=== PATIENT | female | born 1940 | race Caucasian/White ===

== ENCOUNTER 2018-04-25 19:20 | Inpatient (IN) | payer MEDICARE, MEDICAID ==
[~2018-04-25] VITALS: Wt 108.9 kg
--- NOTE | ~2018-04-25 | PR ---
[place], [place] PROGRESS NOTE NAME: BOBO WONG UNIT #: [id number] ROOM: 310 DOCTOR: NOAH VILLA CNP BIRTHDATE: [birth year] DOS: 04/27/2018 CHIEF COMPLAINT: "I won't be here for a lunch." SUMMARY OF THE VISIT: The patient was interviewed in the dining room. She reports that she ate all of her breakfast. However, her sister will be coming to get her because her doctor told her she could go home. The staff reports that the patient has episodes of redundancy in her speech and screaming and crying out. When asked why she does so, she says "I cannot help it." The patient did report that she slept well last night. Staff reports that yesterday she did have some suicidal ideation, but no plan. It appears that by symptomology the patient has pseudobulbar affect. We will plan to start Nuedexta in order to help with these symptoms. MENTAL STATUS EXAMINATION: She is alert and oriented to person and place, not time. She is pleasant and cooperative with me. No matt or hypomania. No delusions or paranoia. No audio or visual hallucinations noted. Her speech was clear, normal tone and rate. Eye contact was good. DIAGNOSES: Pseudobulbar affect. PLAN: We will start Nuedexta 20/10 mg daily for 7 days, then plan to increase to q. 12 hours. We will continue to engage the patient in individual and gilliam milieu activity. Continue fall and safety precautions. Plan to return the patient to the least restrictive environment when she is considered psychiatrically stable. Noah Villa CNP CM:PNTRANS [phone] ONAH VILLA CNP 04/28/18 0358 interface
--- NOTE | ~2018-04-25 | PR ---
[place], [place] PROGRESS NOTE NAME: BOBO WONG UNIT #: [id number] ROOM: 310 DOCTOR: NOAH VILLA CNP BIRTHDATE: [birth year] DOS: 05/05/2018 CHIEF COMPLAINT: "I am excited to see my son." SUMMARY OF THE VISIT: The patient was interviewed as she sat in her room. She reports that she is happy and that she is sleeping well. She reports that her appetite has been good. She denies feeling anxious. Staff reports that the patient only slept 2 hours last night and yelled out most of the night awakening other peers. She continues to exhibit behaviors and continues to be attention seeking at times. MENTAL STATUS: She is alert and oriented to person, place; however, not time. No matt or hypomania noted. No delusions or paranoia noted. No auditory or visual hallucinations noted. Her mood is calm. Affect is appropriate. Her speech is clear. PLAN: We will start Ativan 0.5 mg at bedtime for increased agitation. We will monitor if this is effective to decrease symptoms and improve sleep. Continue to engage the patient in individual and gilliam milieu activity. Continue fall and safety precautions. Plan to return to the least restrictive environment once psychiatrically stable. Noah Villa CNP CM:PNTRANS [phone] NOAH VILLA CNP 05/05/18 1125 interface
--- NOTE | ~2018-04-25 | PR ---
[place], [place] PROGRESS NOTE NAME: BOBO WONG UNIT #: [id number] ROOM: 310 DOCTOR: ERIC CASTREJON MD BIRTHDATE: [birth year] DOS: 04/29/2018 CHIEF COMPLAINT: "I don't know what is happening here, I didn't sleep well." SUMMARY OF THE VISIT: The patient was interviewed in the dining area where she was sitting with peers. She engaged readily in nonsensical conversation, jumping from topic to topic. She did at least correctly state that she lives at [facility], but states that she does not want to return there, stating that she does not like it there and wants to find another placement. MENTAL STATUS: She is alert and oriented to person, possibly place, not to time. Mood does seem to be labile. Affect inappropriate. She does tend to be fragmented in her thinking and has a hard time forming a complete sentence. Short term memory continues to be problematic. PLAN: I will go ahead and increase her Risperdal to 0.5 mg twice daily and check a valproic acid level later today at 1600 hours to ensure that it is therapeutic. We will continue to engage in individual and gilliam milieu activities, returning then to the least restrictive environment when psychiatrically stable. ERIC CASTREJON MD CM:PNTRANS [id number] ERIC CASTREJON MD 04/29/18 1001 interface
--- NOTE | ~2018-04-25 | DS ---
[place], [place] DISCHARGE SUMMARY [id number] #: [id number] ROOM: 310 DOCTOR: ERIC CASTREJON MD BIRTHDATE: [birth year] DOS: 05/07/2018 CHIEF COMPLAINT: "If my family does not come and get me today, I will kill myself." HISTORY OF PRESENT ILLNESS: This is a 77-year-old white female known to me from her stay at [facility] in [place], [place]. The patient had been screaming nonstop for days and had been verbally and physically aggressive towards staff and other residents. The patient had not been sleeping at all during the night. Family believes that she cycles like this every 5 years. The patient has been so inappropriately. She has been sexually flashing others and has been very difficult to quiet and calm down. She was admitted now to the U to rule out any organic factors to attempt to stabilize on medication and to determine the least restrictive environment to which she could be returned to. SUMMARY OF HOSPITAL COURSE: The patient was admitted to the unit where she was maintained on her Depakote, her Exelon and her Namenda. The patient had been prescribed Latuda while at the long term, but this seemed to be ineffective, so the Latuda was discontinued in lieu of Risperdal 0.5 mg in the morning and 1 mg at night. This was utilized in an effort to decrease some of her mood lability. It became quite obvious that she was having excessive emotionality that was inappropriate to the content that was occurring given the fact that this was so prominent, it was felt that pseudobulbar affect was definitely a diagnostic possibility and she was started on Nuedexta 20-10 once a day, which was rapidly increased to 1 tablet every 12 hours. This had a dramatic improvement on her behavior and much of her yelling dissipated after the start of the Nuedexta. She continued to exhibit some mood lability; however, and did have some sleep issues, so the Risperdal dose was gradually increased during the latter part of her stay to a maximum of 1.5 mg in the morning and 2 mg at night. With this dose of Risperdal, the patient was much more redirectable. She was not experiencing the significant mood swings or the inappropriate behavior. She was not exhibiting any side effects from the Risperdal. There was no sedation, somnolence, extrapyramidal symptoms or tardive dyskinesia. The patient voiced a willingness and a readiness to return back to [facility] and was discharged then on 05/07/2018. MENTAL STATUS AT DISCHARGE: The patient is alert and oriented to person, place, and approximate to time. Mood was strongly trending towards euthymia. There was much less mood lability and mood lability that persisted was redirectable. There were no overt auditory or visual hallucinations. No delusions, no paranoia. Short-term memory had gaps, otherwise she was relatively fully intact. DISCHARGE DIAGNOSES: Schizoaffective disorder and pseudobulbar affect along with Alzheimer's dementia. DISPOSITION: All of her prescriptions except her Ativan prescription was e-scribed to [facility]. A 1-week supply of Ativan was printed and sent with her. I will be the treating psychiatrist of record upon her readmission to [facility]. At the time of her discharge, there were no acute medical issue [place], [place] DISCHARGE SUMMARY NAME: BOBO WONG UNIT #: [id number] ROOM: 310 DOCTOR: ERIC CASTREJON MD BIRTHDATE: [birth year] and she was psychiatrically stable. ERIC CASTREJON MD CM:SUMI [phone] ERIC CASTREJON MD 05/07/18 0907 interface
--- NOTE | ~2018-04-25 | PR ---
[place], [place] PROGRESS NOTE NAME: BOBO WONG UNIT #: [id number] ROOM: 310 DOCTOR: ERIC CASTREJON MD BIRTHDATE: [birth year] DOS: 05/02/2018 INTERVAL NOTE CHIEF COMPLAINT: "Oh, I'm okay, but [facility] SUMMARY OF THE VISIT: The patient was interviewed as she was sitting finishing her breakfast in the dining area. She engaged readily in conversation. Later as I left and was in the nurse's station, she loudly yelled out to me, but did redirect. Nurses report that she did not sleep well last night and was up throughout most of the night, yelling at times. She does redirect more readily than she did upon admission. She also was outwardly tolerating the medication regimen well with no sedation, somnolence, extrapyramidal symptoms or tardive dyskinesia. MENTAL STATUS: She is alert and oriented with time gaps. Mood does seem to be more euthymic. Affect more appropriate. There is no matt, hypomania or psychosis. Memory does have gaps. PLAN: I will renew her Ativan p.r.n., should she require intervention and add Rozerem 8 mg at bedtime straight to improve her sleep. Engage in individual and gilliam milieu activity, returning to the least restrictive environment when psychiatrically stable. ERIC CASTREJON MD CM:PNTRANS [phone] ERIC CASTREJON MD 05/03/18 0641 interface
--- NOTE | ~2018-04-25 | PR ---
[place], [place] PROGRESS NOTE NAME: BOBO WONG UNIT #: [id number] ROOM: 310 DOCTOR: ERIC CASTREJON MD BIRTHDATE: [birth year] DOS: 04/30/2018 INTERVAL NOTE CHIEF COMPLAINT: "Hey, doctor, doctor doctor come here." SUMMARY OF THE VISIT: The patient was interviewed as she was sitting in the quiet room. She was sitting with one of the staff members. As I approached, she repeatedly called out doctordoctor doctor. After I left, she continued to yell out, but did respond to some firm redirection. Nurses report she did not sleep well last night again and continues at times to exhibit auditory and visual hallucinations. MENTAL STATUS: She remains alert and oriented to self, unclear place, certainly not time. Mood does still seem to be labile. Affect at times is inappropriate. There is a great deal of mood lability and yelling out noted. Short-term memory continues to be problematic. PLAN: I will increase the Risperdal to 1 mg twice daily if she is not exhibiting any sedation, somnolence, extrapyramidal symptoms or tardive dyskinesia. I will simultaneously bring the Nuedexta into its therapeutic range, increasing it to twice daily, monitor and support, engage in individual and gilliam milieu activity, returning then to the least restrictive environment when psychiatrically stable. ERIC CASTREJON MD CM:PNTRANS [id number] ERIC CASTREJON MD 04/30/18 1309 interface
--- NOTE | ~2018-04-25 | PR ---
[place], [place] PROGRESS NOTE NAME: BOBO WONG UNIT #: [id number] ROOM: 310 DOCTOR: ERIC CASTREJON MD BIRTHDATE: [birth year] DOS: 05/03/2018 CHIEF COMPLAINT: "Morning doctor." SUMMARY OF THE VISIT: The patient was interviewed as she was wheeling herself in her wheelchair in the hallway. She stopped and engaged in conversation with me. She was bright and pleasant. Once I was done talking with her, however, approximately 30 minutes later, I did hear her howling and coughing and hitting her chest. She continues to be very behavioral and attention seeking, but does redirect much more easily. She is also sleeping better at night, eating well, and is exhibiting no side effects from the medications themselves. MENTAL STATUS: She is alert and oriented to person, place, very approximate to time. Mood does seem to be strongly trending towards euthymia. Affect is much more appropriate. There is no matt or hypomania. There is no gross psychosis. Short term memory has gaps, otherwise she is intact. PLAN: I will recheck a valproic acid level today at 1500 hours, ensuring that it is therapeutic between 60 and 80, adjust the dose accordingly, maintain her other psychotropics, engage in individual and gilliam milieu activity, returning then to the least restrictive environment when psychiatrically stable. ERIC CASTREJON MD CM:PNTRANS [id number] ERIC CASTREJON MD 05/03/18 5348 interface
--- NOTE | ~2018-04-25 | PR ---
[place], [place] PROGRESS NOTE NAME[id number] UNIT #: [id number] ROOM: 310 DOCTOR: NOAH VILLA CNP BIRTHDATE: [birth year] DOS: 04/28/2018 CHIEF COMPLAINT: "Can my daughter come visit me here." SUMMARY OF THE VISIT: She was interviewed as she sat in the quiet room. She reports that she wants to visit with her daughter; however, she does not want to be in the dining room, she feels it is too noisy and that there is a poisonous gas leak that needs to be fixed. Staff reports that the patient did start the Nuedexta and seems to be tolerating it well; however, she was having visual hallucination last night of seeing ducks and then was cracking. She has also been having episodes where she is barking. The patient appears to be being treated for UTI at this time. I will plan to start her on some Risperdal to see if it helps with the hallucination symptoms. MENTAL STATUS EXAMINATION: She is alert and oriented to person, place; however, she is not to time. No matt or hypomania noted. Positive delusions of poisonous gas in the dining area. Some mild paranoia noted. No auditory or visual hallucinations noted at this time. Her mood appears to be slightly anxious. Affect is congruent with mood. Her eye contact was good. Her speech was clear, normal tone and normal rate. PLAN: I will start the patient on Risperdal 0.25 mg b.i.d. to aid in the resolution of the hallucinations, delusions and paranoia. This may be related to a UTI, so we may be able to taper this in the near future once the UTI is resolved. We will continue to engage the patient in individual and gilliam milieu activity. Continue fall and safety precautions. Plan to return the patient to the least restrictive environment once psychiatrically stable. Noah Villa CNP CM:PNTRANS [phone] NOAH VILLA CNP 05/29/18 0837 interface
--- NOTE | ~2018-04-25 | PR ---
[place], [place] PROGRESS NOTE NAME: BOBO WONG UNIT #: [id number] ROOM: 310 DOCTOR: ERIC CASTREJON MD BIRTHDATE: [birth year] DOS: 05/01/2018 INTERVAL NOTE CHIEF COMPLAINT: "I want to go back to the locked Alzheimer's unit at [facility]." SUMMARY OF THE VISIT: The patient was interviewed as she was resting quietly in the dining area. She awoke easily upon calling her name and engaged in brief superficial conversation. She did not act bizarrely in any way; however, after we left the room and returned back to the nursing station the patient began howling like a douglas until I came into view of her and she immediately stopped upon seeing me. Some of them her symptoms are volitional. Nurses report, however, since the Nuedexta was started and subsequently increased to its therapeutic level her nonsensical yelling seems to have decreased. MENTAL STATUS: She is alert and oriented with time gaps. Mood does still seem to be labile. There is still these outbursts how much are volitional versus psychosis is unclear. Memory does continue to have gaps. PLAN: I will go ahead and continue to gradually increase her Risperdal bringing the dose from 1 mg twice daily to 1 mg in the morning and 2 mg at bedtime. We will monitor for risk, benefits, monitor for sedation, somnolence, extrapyramidal symptoms and tardive dyskinesia. We will discharge the patient when psychiatrically stable. ERIC CASTREJON MD CM:PNTRANS [phone] ERIC CASTREJON MD 05/01/18 1024 interface
--- NOTE | ~2018-04-25 | PR ---
[place], [place] PROGRESS NOTE NAME: BOBO WONG UNIT #: [id number] ROOM: 310 DOCTOR: NOAH VILLA CNP BIRTHDATE: [birth year] DOS: 05/04/2018 CHIEF COMPLAINT: "I am doing well." SUMMARY OF VISIT: The patient was interviewed in the quiet room after breakfast. She provided very short tense answers. She reports that she is happy, she is sleeping well and her appetite is good. Staff reports that the patient's mood continues to be labile at times. She continues to exhibit some behaviors and appears to be attention seeking at times. MENTAL STATUS EXAMINATION: She is alert and oriented to self. No overt matt or hypomania noted. No delusions or paranoia noted. No auditory or visual hallucinations noted. Her mood is calm. Affect is congruent with mood. Her speech was clear. PLAN: Increase the patient's morning Risperdal to 1.5 mg due to her continued mood lability and agitation. We will continue to engage the patient in individual and gilliam milieu activity. We will continue fall and safety precautions. Plan is to return the patient to the least restrictive environment when she is considered psychiatrically stable. Noah Villa CNP CM:PNTRANS [phone] NOAH VILLA CNP 05/05/18 0819 interface
--- NOTE | ~2018-04-25 | PR ---
[place], [place] PROGRESS NOTE NAME: [id number] UNIT #: [id number] ROOM: 310 DOCTOR: ERIC CASTREJON MD BIRTHDATE: [birth year] DOS: 05/06/2018 CHIEF COMPLAINT: "She is from my place. I have seen her there before." SUMMARY OF THE VISIT: The patient was interviewed in the dining area where she was sitting with a female peer who also resides at her long-term care facility. The patient was bright and pleasant and voiced no complaints, reporting to me that she had a good weekend. She did report that she is sleeping well and eating well and overall she was much more appropriate in conversation. There was no bizarre behavior, no bizarre utterances, no howling or inappropriate behavior. Outwardly also, she did not exhibit any sedation, somnolence, extrapyramidal symptoms or tardive dyskinesia. MENTAL STATUS: She remains alert and oriented to person, place, not necessarily time. Mood does seem to be strongly trending towards euthymia. Affect is much more appropriate. There is no matt or hypomania. There are no gross psychotic symptoms. For the most part, memory is intact. PLAN: I will maintain her current psychotropic regimen. Continue to support and monitor. Continue to engage in individual and gilliam milieu activity, returning to the least restrictive environment when psychiatrically stable. ERIC CASTREJON MD CM:PNTRANS [phone] ERIC CASTREJON MD 05/06/18 1118 interface
[~2018-04-25 19:20] MED LIST: ACIDOPHILUS1 EAC5 PO; ARTIFICIAL TEA3.5 G1 OP; ASPIRIN ADULT L81 MG PO
[2018-04-25 20:30] VITALS: BP 154/86
[2018-04-25] MEDS ORDERED: Depakote500 MG PO (22:10)
[2018-04-25] MEDS ORDERED: DOCUSOFT-S100 MG PO (22:12)
[2018-04-25] MEDS ORDERED: FEROSUL325 MG PO (22:14)
[2018-04-25] MEDS ORDERED: ROBITUSSIN5 ML PO (22:15)
[2018-04-25] MEDS ORDERED: LASIX20 MG PO (22:16)
[2018-04-25] MEDS ORDERED: CLARITIN10 MG PO (22:17)
[2018-04-25] MEDS ORDERED: LATU80TA PO (22:17)
[2018-04-25] MEDS ORDERED: NAMENDA-28 PO (22:18)
[2018-04-25] MEDS ORDERED: PRAVACHOL80 M1 PO (22:19)
[2018-04-25] MEDS ORDERED: RIVASTIGMINE TAR6 M1 PO (22:20)
[2018-04-25] MEDS ORDERED: Kenalog 0.5% Oi15 GM T (22:22)
[2018-04-25] MEDS ORDERED: TYLENOL325 M1 PO (22:23)
[2018-04-25] MEDS ORDERED: VISTARIL50 MG PO (22:24)
[2018-04-25] MEDS ORDERED: VITAMIN B-121000 MC2 PO (22:26)
[2018-04-25] MEDS ORDERED: VITAMIN D-32000 UNI1 PO (22:27)
[2018-04-25] MEDS ORDERED: OXYGEN NAS (22:34)
[2018-04-26 07:24] VITALS: BP 126/70
[2018-04-26 08:39] VITALS: BP 126/70
[2018-04-26 09:13] LABS: THYROID STIM HORMONE (HS) 3.86 uIU/ml (0.358-4.75)
[2018-04-26 09:26] LABS: VITAMIN D, 25-HYDROXY 21.1 ng/mL (30-100)
[2018-04-26 16:29] LABS: BILIRUBIN NEGATIVE (NEGATIVE); BLOOD 3+ (NEGATIVE); CLARITY CLOUDY (CLEAR); COLOR YELLOW (YELLOW); GLUCOSE NEGATIVE (NEGATIVE); KETONE NEGATIVE (NEGATIVE); LEUKO ESTERASE 3+ (NEGATIVE); NITRITE NEGATIVE (NEGATIVE); UROBILINOGEN 0.2 E.U./dl (0.2-1.0)
[2018-04-26 16:45] LABS: BACTERIA 4+; RBC TNTC rbc/hpf (0-2); WBC TNTC wbc/hpf (0-5)
[2018-04-26 19:43] VITALS: BP 130/61
[2018-04-27 07:33] VITALS: BP 130/50
[2018-04-27 13:57] VITALS: BP 130/69
[2018-04-27 19:13] VITALS: BP 118/68
[2018-04-28 06:27] LABS: BASO # 0.1 10*3/uL (0.0-0.1); BASO % 0.8 % (0.0-1.0); EOS # 0.2 10*3/uL (0.0-0.4); EOS % 3.2 % (1.0-4.0); HEMATOCRIT 39.4 % (37.0-47.0); HEMOGLOBIN 12.2 g/dl (12.0-16.0); LYMPH # 2.1 10*3/uL (1.3-4.4); LYMPH % 31.8 % (27.0-41.0); MEAN CORPUSCULAR HGB 31.3 pg (27.0-31.0); MEAN PLATELET VOLUME 10.3 fl (9.6-12.3); MONO # 0.8 10*3/uL (0.1-1.0); MONO % 11.7 % (3.0-9.0); NEUT # 3.5 10*3/uL (2.3-7.9); PLATELET COUNT AUTOMATED 272 10*3/uL (130-400); WHITE BLOOD COUNT 6.7 10*3/uL (4.8-10.8)
[2018-04-28 06:58] LABS: BUN 18 mg/dl (7-24); CHLORIDE 104 mmol/L (98-107); CREATININE 0.79 mg/dL (0.55-1.02); POTASSIUM 3.6 mmol/L (3.5-5.1); SODIUM 142 mmol/L (136-145)
[2018-04-28 07:26] VITALS: BP 110/60
[2018-04-28 19:43] VITALS: BP 115/89
[2018-04-29 07:20] VITALS: BP 121/67
[2018-04-29 20:13] VITALS: BP 122/65
[2018-04-30 07:42] VITALS: BP 139/60
[2018-04-30 20:25] VITALS: BP 159/55
[2018-05-01 07:40] VITALS: BP 120/53
[2018-05-01 20:00] VITALS: BP 126/65
[2018-05-02 08:09] VITALS: BP 118/78
[2018-05-02 20:00] VITALS: BP 122/65
[2018-05-03 07:52] VITALS: BP 122/56
[2018-05-03 19:51] VITALS: BP 118/62
[2018-05-04 08:16] VITALS: BP 122/61
[2018-05-04 19:53] VITALS: BP 123/54
[2018-05-05 07:59] VITALS: BP 124/58
[2018-05-05 20:00] VITALS: BP 133/66
[2018-05-06 07:16] VITALS: BP 127/71
[2018-05-06 19:45] VITALS: BP 132/70
[2018-05-07 07:33] VITALS: BP 130/67
[2018-05-07] MEDS ORDERED: MIRTAZAPINE15 M2 PO (08:52)
[2018-05-07] MEDS ORDERED: RISPERIDONE1 MG PO (08:52)
[2018-05-07] MEDS ORDERED: LORAZEPAM0.5 MG PO (08:52)
[2018-05-07] MEDS ORDERED: RISPERIDONE0.5 MG PO (08:52)
[2018-05-07] MEDS ORDERED: RIVASTIGMINE TAR3 M1 PO (08:52)
[2018-05-07] MEDS ORDERED: DIVALPROEX SOD500 M1 PO (08:52)
[2018-05-07] MEDS ORDERED: RISPERIDONE2 M2 PO (08:52)
[2018-05-07] MEDS ORDERED: NEUDEXT PO (08:52)
[2018-05-07] MEDS ORDERED: MEMANTINE HCL10 MG PO (08:52)
== END 2018-05-07 13:54 | DRG 57 ==
LOC: EDHOLD 19:20 → 3N 19:20
PROVIDERS: Internal Medicine; Nurse Practitioner Women's Health; ADMIT Psychiatry & Neurology Psychiatry
DX: G30.9 Alzheimer's disease, unspecified (principal); F31.10 Bipolar disorder, current episode manic without psychotic features, unspecified; F25.9 Schizoaffective disorder, unspecified; I50.9 Heart failure, unspecified; F42.9 Obsessive-compulsive disorder, unspecified; I11.0 Hypertensive heart disease with heart failure; I25.10 Atherosclerotic heart disease of native coronary artery without angina pectoris; M19.90 Unspecified osteoarthritis, unspecified site; E78.5 Hyperlipidemia, unspecified; K21.9 Gastro-esophageal reflux disease without esophagitis; R32 Unspecified urinary incontinence; K59.00 Constipation, unspecified; E53.8 Deficiency of other specified B group vitamins; E55.9 Vitamin D deficiency, unspecified; F02.80 Dementia in other diseases classified elsewhere, unspecified severity, without behavioral disturbance, psychotic disturbance, mood disturbance, and anxiety

== ENCOUNTER 2019-02-27 10:29 | Inpatient (IN) | payer MEDICARE, MEDICAID ==
[~2019-02-27] VITALS: Ht 157.4 cm; Wt 99.8 kg
--- NOTE | ~2019-02-27 | PR ---
[place], [place] PROGRESS NOTE [id number] UN[facility] #: [id number] ROOM: 310 DOCTOR: ERIC CASTREJON MD BIRTHDATE: [birth year] DOS: 03/09/2019 CHIEF COMPLAINT: "Oh, doctor Richy thanks for coming." SUMMARY OF THE VISIT: The patient was interviewed as she was sitting watching television. She stopped and engaged in conversation with me. She reached out and touched my hand and thanked me for visiting. She continues to exhibit significant mood lability and she did jump from topic to topic. Nurses do report she slept better, but then she continues behavior such as flashing male workers and patients. MENTAL STATUS: She remains alert and oriented to person, place, select others, not necessarily time. Mood still is rather labile and affect is inappropriate at times. She is hypomanic now and the full matt seems to be dissipating some. There is no active psychosis noted. Short term memory has gaps. PLAN: I will continue her trazodone at 300 mg at bedtime as this did seem to impact positively on her sleep. I will increase the Invega from 9 mg to 12 mg in the morning in an effort to control mood lability and behavior, continue to engage in individual and gilliam milieu activity, returning to the least restrictive environment when psychiatrically stable. ERIC CASTREJON MD CM:PNTRANS [phone] ERIC CASTREJON MD 03/09/19 1030 interface
--- NOTE | ~2019-02-27 | PR ---
[place], [place] PROGRESS NOTE [id number] UNIT #: [id number] ROOM: 310 DOCTOR: ERIC CASTREJON MD BIRTHDATE: [birth year] DOS: 03/03/2019 CHIEF COMPLAINT: "I didn't have a weekend." SUMMARY OF THE VISIT: The patient was interviewed as she was finishing her breakfast. She engaged readily in conversation, reporting that she did not have a weekend. When I had her elaborate on that, she stated that she did not sleep well and that she yelled a lot. She openly stated that she was manic, but wanted to go back home. I told her that I could not return her home until her matt came under control and then she nodded in approval. MENTAL STATUS: She remains alert and oriented with time gaps. Mood does seem to be still rather labile and inappropriate at times. There are no gross psychotic symptoms noted and memory does have some gaps. PLAN: I will discontinue her hydroxyzine to simplify her drug regimen and increase the Invega from 6 mg in the morning to 9 mg in the morning to try to break some mood lability. I will check a valproic acid level at 1500 hours given the fact that she is on the Depakote ER prep and that the trough level is somewhere between 3 and 4 p.m. We will monitor and support, engage in individual and gilliam milieu activity, returning to the least restrictive environment when psychiatrically stable. ERIC CASTREJON MD CM:PNTRANS [phone] ERIC CASTREJON MD 03/03/19 1739 interface
--- NOTE | ~2019-02-27 | PR ---
[place], [place] PROGRESS NOTE [id number] UNIT #: [id number] ROOM: 310 DOCTOR: ERIC CASTREJON MD BIRTHDATE: [birth year] DOS: 03/05/2019 CHIEF COMPLAINT: "I didn't sleep well. I am bipolar, manic depressive." SUMMARY OF THE VISIT: The patient was interviewed as she was sitting eating her breakfast. She engaged readily in conversation and was somewhat fragmented, disjointed and circumstantial. She remains grossly hypomanic. Outwardly, she is tolerating her current medication regimen well and I see no tardive dyskinesia, extrapyramidal symptoms, sedation or somnolence. MENTAL STATUS: She is alert and oriented. Mood does seem to be rather expansive and labile. There are no overt auditory or visual hallucinations. No delusions, no paranoia. Memory does have some gaps. PLAN: I will change the stop date for her p.r.n. Ativan until 03/29/2019 should she require intervention. Given the ineffectiveness of the Rozerem to aid sleep, I will discontinue it in lieu of Ambien 5 mg at bedtime. Her lack of sleep could certainly be perpetuating her hypomania and matt and hopefully a good night sleep will break the cycle. We will continue to engage her in individual and gilliam milieu activity, returning to the least restrictive environment when psychiatrically stable. ERIC CASTREJON MD CM:PNTRANS [phone] ERIC CASTREJON MD 03/05/19 1455 interface
--- NOTE | ~2019-02-27 | PR ---
[place], [place] PROGRESS NOTE NAME: BOBO WONG UNIT #: [id number] ROOM: 310 DOCTOR: ERIC CASTREJON MD BIRTHDATE: [birth year] DOS: 03/13/2019 CHIEF COMPLAINT: "I will go home tomorrow, tomorrow, tomorrow. Tomorrow never comes." SUMMARY OF THE VISIT: The patient was interviewed as she was sitting in the dining area. She had already eaten her breakfast. She engaged readily in conversation and reported to me that she was ready to go home tomorrow and then reported that tomorrow, tomorrow, tomorrow never comes, stating that she likes it here. She then cackled and laughed hysterically. Overall, though there has been an improvement and she is much more pleasant and cooperative. I do believe she likes being in the hospital and the added attention that she gets here. More often than not, she is now redirectable and she does seem to be tolerating the current medication regimen well without any extrapyramidal symptoms, tardive dyskinesia, sedation or somnolence. MENTAL STATUS: She is alert and oriented with time gaps. Mood does seem to be strongly trending towards euthymia. Affect is much more appropriate. There is no matt, hypomania or psychosis. Short term memory has gaps, otherwise she is intact. PLAN: I will continue her current psychotropic regimen, renew her p.r.n. Ativan should she require intervention. Engage in individual and gilliam milieu activity, returning to the least restrictive environment when psychiatrically stable. ERIC CASTREJON MD CM:PNTRANS [phone] ERIC CASTREJON MD 03/13/19 1044 interface
--- NOTE | ~2019-02-27 | PR ---
[place], [place] PROGRESS NOTE NAME: BOBO WONG UNIT #: [id number] ROOM: 310 DOCTOR: ERIC CASTREJON MD BIRTHDATE: [birth year] DOS: 03/07/2019 INTERVAL NOTE CHIEF COMPLAINT: "I didn't sleep." SUMMARY OF THE VISIT: The patient was interviewed as she was sitting with a group of peers. She engaged at first in some meaningful conversation, but very quickly deteriorated into almost nonsense. At one point, she began cackling like a witch, loudly laughing almost hysterical. Eventually, I asked that she be removed to quiet room as she was very disruptive to the entire milieu. MENTAL STATUS: She is alert and oriented to person, place and approximate to time. Mood still is wildly labile. Affect is inappropriate. She remains grossly manic. PLAN: I will discontinue her Ambien due to ineffectiveness and begin titrating trazodone. I will start at 100 mg at bedtime in an effort to get her sleeping hoping to break the cycle and break the matt. We will engage in individual and gilliam milieu activity, returning to the least restrictive environment when psychiatrically stable. ERIC CASTREJON MD CM:PNTRANS 1 ERIC CASTREJON MD 03/07/19910 interface
--- NOTE | ~2019-02-27 | DS ---
[place], [place] DISCHARGE SUMMARY [facility] [id number] UNIT #: [id number] ROOM: 310 DOCTOR: ERIC CASTREJON MD BIRTHDATE: [birth year] DOS: 03/14/2019 DATE OF DISCHARGE: 03/14/2019 CHIEF COMPLAINT: "I am manic depressive bipolar." HISTORY OF PRESENT ILLNESS: This is an 78-year-old white female known to me from her previous admission here to the [facility] as well as her stay at [facility] in [place], [place]. The patient has become increasingly more manic and psychotic. She has been experiencing both auditory and visual hallucinations. She has been very labile and irritable. She has been disruptive to the entire gilliam milieu there and has been verbally and physically aggressive towards staff. She has been sexually inappropriate and she has been flashing her breasts to staff, other residents and visitors. She is admitted now to rule out organic factors, to stabilize on medication, to return then to the least restrictive environment when psychiatrically stable. SUMMARY OF HOSPITAL COURSE: The patient was admitted to the hospital where her Risperdal was discontinued in lieu of Invega 6 mg a day with the hope that this would be more potent with less sedation. Additionally, her Remeron initially was lowered from 22.5 mg a day to 15 mg a day in order to attempt to improve sleep and break the manic psychosis. Rozerem was added at first to see if this would help; however, this was unsuccessful and the Remeron decrease did not work as well. Ultimately, she was started on trazodone 50 mg at bedtime and gradually the dose was increased to 300 mg at bedtime with good results finally at that dose. The Invega dose was gradually increased from 6 to 9 and then ultimately to 12 mg a day and at that dose, coupled with the trazodone, that did seem to break the manic behavior. She was much less disruptive. She was not yelling out as much and she was not as sexually inappropriate and when she attempted to be sexually inappropriate, simple verbal prompting would stop her. She tolerated the Invega and the trazodone well. There was no excessive sedation, somnolence, extrapyramidal symptoms or tardive dyskinesia. She had improved sufficiently to return back to [facility] at that time. MENTAL STATUS AT DISCHARGE: The patient is alert and oriented to person, place, but not time. Mood does seem to be strongly trending towards euthymia. Affect is much more appropriate. There is no matt, hypomania or psychosis. Short term memory has gaps, otherwise she is intact. FINAL DIAGNOSIS AT THE TIME OF DISCHARGE: Bipolar type 1, manic, with psychotic features. PLAN: The patient is returning to [facility]. Her prescriptions have been e-scribed to [facility]. At the time of discharge, she was medically and psychiatrically stable. [place], [place] DISCHARGE SUMMARY NAME: BOBO WONG UNIT #: [id number] ROOM: 310 DOCTOR: ERIC CASTREJON MD BIRTHDATE: [birth year] ERIC CASTREJON MD CM:SUMI ERIC CASTREJON MD 03/14/1960 interface
--- NOTE | ~2019-02-27 | PR ---
[place], [place] PROGRESS NOTE NAME[id number] UNIT #: [id number] ROOM: 310 DOCTOR: ERIC CASTREJON MD BIRTHDATE: [birth year] DOS: 03/04/2019 CHIEF COMPLAINT: "I am bipolar, manic depressive. "When do I get to go home." SUMMARY OF THE VISIT: The patient was interviewed in the dining area. As I approached her, she engaged in conversation readily. She was nearly pressured, but she was interruptible. She jumped from topic to topic and at one point, she attempted to pull her blouse up exposing herself, but she did redirect relatively easily. Outwardly, she is not showing any signs of sedation, somnolence, extrapyramidal symptoms or tardive dyskinesia. MENTAL STATUS: She is alert and oriented with some time gaps. Mood does seem to be wildly manic. There were no gross psychotic symptoms. She does process at times slowly and short term memory is poor. PLAN: I will discontinue her Remeron in case this antidepressant is fueling the matt. I will also simplify her regimen by discontinuing the Nuedexta and add Rozerem 8 mg at bedtime in an effort to improve sleep and see if that will also help break the manic cycle. Her valproic acid level was therapeutic at 71.4, so I will maintain her current Depakote dose. We will continue to engage in individual and gilliam milieu activity, returning then to the least restrictive environment when psychiatrically stable. ERIC CASTREJON MD CM:PNTRANS [phone] ERIC CASTREJON MD 03/04/19 1300 interface
--- NOTE | ~2019-02-27 | PR ---
[place], [place] PROGRESS NOTE NAME: [facility]ONG [facility]: [id number] UNIT #: [id number] ROOM: 310 DOCTOR: ERIC CASTREJON MD BIRTHDATE: [birth year] DOS: 03/11/2019 CHIEF COMPLAINT: "Oh, hold my hand." SUMMARY OF THE VISIT: The patient was interviewed as she was resting in bed. I entered her room with a nurse present. The patient did awake easily. She asked me immediately to hold her hand. I did offer her assistance in the form of getting a nurse's aide to help her get up, get ready and have breakfast. She nodded in approval. She did seem somewhat somnolent in waking up this morning, but on a positive note nurses did report that she slept much better last evening. MENTAL STATUS: She is alert and oriented to person, place, but not time. Mood does seem to be trending towards euthymia. Affect is more appropriate. There is no matt or hypomania. There is no gross psychosis. Short-term memory does have gaps. PLAN: I will maintain her current psychotropic regimen, continue to engage in individual and gilliam milieu activity, returning to the least restrictive environment when psychiatrically stable. ERIC CASTREJON MD CM:PNTRANS [phone] ERIC CASTREJON MD 03/11/19 1046 interface
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
--- NOTE | ~2019-02-27 | PR ---
[place], [place] PROGRESS NOTE NAME: BOBO WONG UNIT #: [id number] ROOM: 310 DOCTOR: ERIC CASTREJON MD BIRTHDATE: [birth year] DOS: 03/10/2019 CHIEF COMPLAINT: "Morning." SUMMARY OF THE VISIT: The patient was interviewed as she was resting in bed. She awoke and engaged in brief conversation, continuing still to be fragmented and disjointed. Nurses report, she continues to have some periods of inappropriate behavior, but redirects with verbal prompting. Otherwise, there have been no behavioral issues. MENTAL STATUS: She is alert and oriented to person, place, not necessarily time. Mood does seem to be trending towards euthymia. Affect is more appropriate. There is no matt, hypomania or gross psychosis. Short-term memory does have gaps. PLAN: I will continue her current psychotropic regimen, continue to engage in individual and gilliam milieu activity, returning then to the least restrictive environment when psychiatrically stable. ERIC CASTREJON MD CM:PNTRANS 7 6 ERIC CASTREJON MD [birth year]/10[birth year]1925 interface
--- NOTE | ~2019-02-27 | PR ---
[place], [place] PROGRESS NOTE [id number] UNIT #: [id number] ROOM: 310 DOCTOR: ERIC CASTREJON MD BIRTHDATE: [birth year] DOS: 03/12/2019 CHIEF COMPLAINT: "Oh, I don't want to go back to [facility], no way, no how." SUMMARY OF THE VISIT: The patient was interviewed in the dining room. She reported to me that she was feeling better. When I discussed with her that she would be going back to [facility], she yelled loudly that she did not want to go back. Otherwise, she was pleasant and cooperative. Sleep has improved, appetite has improved and overall she is much more redirectable. MENTAL STATUS: She is alert and oriented with time gaps. Mood does seem to be trending towards euthymia. Affect is more appropriate. There is no matt, hypomania or psychosis. Short term memory continues to be problematic. PLAN: I will continue her current psychotropic regimen, continue to engage in individual and gilliam milieu activity, returning to the least restrictive environment when psychiatrically stable. ERIC CASTREJON MD CM:PNTRANS ERIC CASTREJON MD 03/12/1936 interface
--- NOTE | ~2019-02-27 | PR ---
[place], [place] PROGRESS NOTE [id number] UNIT #: [id number] ROOM: 310 DOCTOR: ERIC CASTREJON MD BIRTHDATE: [birth year] DOS: 03/08/2019 CHIEF COMPLAINT: "They gave me a Thorazine shot, I was hearing voices." SUMMARY OF THE VISIT: The patient was interviewed as she was sitting in the dining area. She had already eaten her breakfast. She rambled from topic to topic and was convinced that she received a Thorazine injection last night and states that I should not believe anything that the nurses tell me about her. She remains grossly hypomanic if not frankly manic. MENTAL STATUS: She is alert and oriented to person, place, not necessarily time. Mood does seem to be trending towards slight euthymia, although she still remains somewhat labile. She remains grossly delusional. PLAN: Given the fact that she barely slept last night, I will increase the trazodone from 100 mg at bedtime to 300 mg at bedtime in an effort to get her sleeping and attempt to break the matt, engage in individual and gilliam milieu activity, returning to the least restrictive environment when psychiatrically stable. ERIC CASTREJON MD CM:PNTRANS [phone] ERIC CASTREJON MD 03/08/19 1039 interface
--- NOTE | ~2019-02-27 | WRIGHTHP ---
[place], [place] PATIENT HISTORY AND PHYSICAL EXAM NAME: BOBO WONG UNIT #: [id number] ROOM: 310 DOCTOR: ERIC CASTREJON MD BIRTHDATE: [birth year] DOS: 02/28/2019 INITIAL PSYCHIATRIC EVALUATION CHIEF COMPLAINT: "I am manic depressive bipolar." HISTORY OF PRESENT ILLNESS: This is an 78-year-old white female known to me from a previous admission here to the [facility] as well as her stay at [facility] in [place], [place]. The patient has become increasingly more manic and psychotic. She has been experiencing auditory and visual hallucination. She has been extremely labile and has been irritable and manic. She has been very disruptive to the gilliam milieu and has been verbally and physically aggressive towards staff. Because of these behaviors, it was felt that an inpatient stabilization was warranted. PAST MEDICAL HISTORY: Remarkable for osteoarthritis, coronary artery disease, congestive heart failure, hyperlipidemia, schizoaffective disorder, vitamin B12 deficiency, vitamin D deficiency. SOCIAL HISTORY: She does not smoke cigarettes, use illicit drugs or drink alcohol. ALLERGIES: She lists no known allergies. STRENGTHS: Good verbal skills. WEAKNESSES: Chronic severe mental health issues, poor coping skills. MENTAL STATUS: She is alert and oriented with time gaps. Mood does seem to be rather labile and at times inappropriate. She endorses positive hallucinations, but denies that they are currently occurring. There is presence of at least hypomania if not matt. Memory does have gaps. DIAGNOSIS: Bipolar type 1, manic. PLAN: I will discontinue her Risperdal in lieu of Invega 6 mg a day. I will lower her Remeron from 22.5-15 mg at bedtime in order to improve sleep. I will also add Rozerem as a non-addicting sleep aid to see if a good night sleep will help to start breaking the manic behavior. We will engage her in individual and gilliam milieu activity, returning to the least restrictive environment when psychiatrically stable. [place], [place] PATIENT HISTORY AND PHYSICAL EXAM NAME: BOBO WONG UNIT #: [id number] ROOM: 310 DOCTOR: ERIC CASTREJON MD BIRTHDATE: [birth year] ERIC CASTREJON MD CM:LAURELS:PATIENT HISTORY AND PHYSICAL EXAMINATION 2 3 ERIC CASTREJON MD 02/28/1934 interface
[~2019-02-27 10:29] MED LIST changes: +ARTIFICIAL TEAR1513 OP; +CLARITIN10 MG PO; +DIVALPROEX SOD500 M1 PO; +DOCUSOFT-S100 MG PO; +Depakote500 MG PO; +FEROSUL325 MG PO; +Kenalog 0.5% Oi15 GM T; +LASIX20 MG PO; +LATU80TA PO; +LAXATIVE SUPPOS10 MG R; +LORAZEPAM0.5 MG PO; +MEMANTINE HCL10 MG PO; +MIRTAZAPINE15 M2 PO; +MIRTAZAPINE45 MG PO; +NAMENDA-28 PO; +NEUDEXT PO; +OXYGEN NAS; +PRAVACHOL80 M1 PO; +RISPERIDONE0.5 MG PO; +RISPERIDONE1 MG PO; +RISPERIDONE2 M2 PO; +RIVASTIGMINE TAR3 M1 PO; +RIVASTIGMINE TAR6 M1 PO; +ROBITUSSIN5 ML PO; +TYLENOL325 M1 PO; +VISTARIL50 MG PO; +VITAMIN B-121000 MC2 PO; +VITAMIN D-32000 UNI1 PO
--- NOTE | 2019-02-27 10:36 | NUR ---
BOBO WONG a 78 year old F admitted via wheel chair from the FACILITY as a voluntary admission BY GEORGIE WONG. Arrived on unit at 1036. ALLERGIES: NKA. Vital signs are: 97.1-78-22 143/60. The GEORGIE ULISES JUDITH VERBALLY CONSNETED VIA PHONE the following forms with stated understanding: Authorization For The Release of Medical Information, Clothing List, Consent to Voluntary Admission and Hospitalization, Consent and Release Forms/Receipt of Rights, Acknowledgement of Advance Directive Information, Behavioral Health Consent Form, and Informed Consent of Medications. Admitted under the services of Dr. CASH SANCHEZ,[facility]. A search was conducted and hazardous articles were removed. Client was oriented to the unit. SYLVESTER DUARTE
[2019-02-27] MEDS ORDERED: RISPERDAL2 M1 PO (10:41)
[2019-02-27 10:42] VITALS: BP 143/60
[2019-02-27 10:47] VITALS: BP 143/60
--- NOTE | 2019-02-27 11:06 | NUR ---
SPOKE WITH DR CASTREJON RE: PT SUICIDE SCORE OF 37 AND PT STATING "IF I HAD A KNIFE I'D KILL MYSELF". ALSO ADVISED DR CASTREJON THAT PT IS DELUSIONAL STATING SHE SMOKED IT UP LAST NIGHT AND GOT DRUNK. PER DR. CASTREJON MAINTAIN Q15 MIN SAFETY CHECKS.
--- NOTE | 2019-02-27 11:11 | NUR ---
SPOKE WITH DR ESPINO AT [phone] RE: MEDICAL MANAGEMENT CONSULT NEEDED PER DR. YANG CONSULT UNDER DR VELEZ
--- NOTE | 2019-02-27 15:52 | NUR ---
Per Krista Day at [facility], pt is a long-term care resident and is a bed hold there.
[2019-02-27 16:00] LABS: BILIRUBIN NEGATIVE (NEGATIVE); BLOOD TRACE-INTACT (NEGATIVE); CLARITY CLOUDY (CLEAR); COLOR YELLOW (YELLOW); GLUCOSE NEGATIVE (NEGATIVE); KETONE NEGATIVE (NEGATIVE); LEUKO ESTERASE 3+ (NEGATIVE); NITRITE NEGATIVE (NEGATIVE); SPECIFIC GRAVITY 1.015 (1.005-1.030); UROBILINOGEN 0.2 E.U./dl (0.2-1.0)
[2019-02-27 16:46] LABS: ALBUMIN 2.9 gm/dl (3.1-4.5); BUN 26 mg/dl (7-24); CHLORIDE 102 mmol/L (98-107); CHOLESTEROL 150 mg/dL (<200); CREATININE 0.99 mg/dL (0.55-1.02); HDL CHOLESTEROL 50 mg/dl (40-60); LDL CHOLESTEROL 76 mg/dL (9-159); POTASSIUM 4.3 mmol/L (3.5-5.1); SGOT/AST 17 IU/L (3-35); SGPT/ALT 18 U/L (12-78); SODIUM 138 mmol/L (136-145); TOTAL PROTEIN 7.7 gm/dL (6.4-8.2); TRIGLYCERIDES 121 mg/dl (<150); VALPROIC ACID (DEPAKENE) 61.6 ug/ml (50-100); VLDL CHOLESTEROL 24 mg/dL (6-40)
[2019-02-27 16:51] LABS: VITAMIN D, 25-HYDROXY 37.2 ng/mL (30-100)
[2019-02-27 16:52] LABS: ALKALINE PHOSPHATASE 98 U/L (45-117)
[2019-02-27 16:59] LABS: BACTERIA 2+; EPITHELIAL CELLS 0-2; WBC TNTC wbc/hpf (0-5)
--- NOTE | 2019-02-27 17:22 | NUR ---
SPOKE WITH DR. HASTINGS RE: PT UA RESULTS ARE IN FOR REVIEW. PER SHE WILL TAKE A LOOK. NO FURTHER ORDERS AT THIS TIME.
[2019-02-27 19:34] VITALS: BP 124/76
--- NOTE | 2019-02-27 21:01 | NUR ---
IN DININGROOM IN CHAIR. PARROTS PEERS RESPONCES TO QUESTION. SMILES AND NODS WHEN YOU ASK HER A QUESTION. OCCATIONAL REPLY OF YEAH THERE. TAKES PILLS WHOLE WITHOUT DIFFICULTY. NO OUTBURST THIS SHIFT. NO WOUNDS OR RASHES NOTED ON BODY, TRIAMCINOINE ACETONIDE HELD.
--- NOTE | 2019-02-27 23:08 | NUR ---
INCONTINENT OF GREEN MUSHY STOOL. CLEANED UP BUT CLIENT RESISTIVE AND CURSING AT STAFF. BACK TO BED IN POSITION OF COMFORT. ENCOURAGED CLIENT TO USE BUTTON ON BED T CALL FOR HELP NOT SCREAM AND DISTURB UNIT
--- NOTE | 2019-02-28 02:31 | NUR ---
HAS SLEPT MINIMAL TONIGHT. THROWING BLANKETS AND PILLOWS OFF BED. CURSING AT STAFF. THREATS TO HARM STAFF. UNABLE TO REDIRECT. WILL CONITNUE TO MONITOR
--- NOTE | 2019-02-28 05:12 | NUR ---
APPEARS TO BE RESPONDING TO INTERNAL STIMULI. TALKING WITH UNSEEN OTHERS. APPEARS AGGREVATED WHEN WE DO 15 MINUTE CHECKS AND SHE IS HALLUCINATING. ATTEMPTS TO HIDE THIS. 24 HR chart check completed.
[2019-02-28 07:45] VITALS: BP 153/67
--- NOTE | 2019-02-28 08:15 | NUR ---
Treatment Plan meeting with Dr. Lockhart, RN, AT, SW and Ornamental Bronze Worker. Plan for discharge at the end of Next week. Pt. came to [facility] from [facility].
--- NOTE | 2019-02-28 11:48 | NUR ---
AM GROUP PT ATTENDED MORNING GROUP THERAPY AND PARTICIPATED BY PLAYING CARDS WITH PEERS AND NURSING STUDENTS. PT EXHIBITED NO AGITATION NOR EXPRESSED ANY HALLUCINATIONS WHILE IN GROUP. PT WAS LAUGHING AND JOKING WHILE STAYING ON TASK.
--- NOTE | 2019-02-28 13:28 | NUR ---
Nursing screen and occupational therapy referral received. Thank you. Justa Briones Otr/L
--- NOTE | 2019-02-28 14:46 | NUR ---
Spoke with Krista Monzon at [facility]. Pt. is [facility] at facility and Will return at discharge. Clinical Updates faxed to facility [phone] Attn: [place].
--- NOTE | 2019-02-28 15:42 | NUR ---
PM GROUP PT ATTENDED AFTERNOON GROUP THERAPY AND PARTICIPATED BY LISTENING TO MUSIC AND LOOKING AT MAGAZINES. PT EXHIBITED NO AGITATION OR AGGRESSION WHILE IN GROUP. PT WAS PLEASANT AND TALKATIVE.
--- NOTE | 2019-02-28 16:03 | NUR ---
Patient was pleasant today when interacting with this medical technical writer. Pt spoke of her bipolar diagnosis. She spoke of the struggles that she has had because of the illness.
--- NOTE | 2019-02-28 17:57 | NUR ---
Patient resting quietly with no c/o discomfort. Respirations easy and regular. Vital signs stable. No overt distress. GIVENS,NORY
[2019-02-28 20:01] VITALS: BP 120/58
--- NOTE | 2019-03-01 00:42 | NUR ---
P-LABILE, YELLING OUT, DISRUPTIVE I-PRESENT REALITY AND REDIRECT. PROVIDE 1:1 WITH THERAPEUTIC INTERVENTIONS. ENCOURAGE MEDICATION COMPLIANCE AND EDUCATE. MONITOR SLEEP. R-PATIENT ALERT AND ORIENTED X3 WITH CONFUSION. PT CALM, COOPERATIVE, AND ISOLATIVE TO SELF DURING THE BEGINNING OF SHIFT. PT SAT QUIETLY IN DINING ROOM FOR HS SNACK AND WATCHED TV. DURING 1:1 PATIENT STATED SHE WAS DOING OKAY WITH NO COMPLAINTS. MEDICATION COMPLIANT WITHOUT DIFFICULTY AFTER REVIEW. PT DENIED SI/HI AND HALLUCINATIONS WITH NO NOTED RESPONDING TO INTERNAL STIMULI. PT THEN ASSISTED TO BED WITH STAFF X1 WITH OUT DIFFICULTY. WHILE IN ROOM/BED PT THEN BEGAN TO HAVE ATTENTION SEEKING BEHAVIORS (BARKING, MONKEY NOISES, SCREAMING). PT UNRECEPTIVE WITH REDIRECTION AND BECOMES ACCUSATORY OR THREATENING OF STAFF STATING "MY BIPOLAR KICKED IN AND YOUR HITTING ME" AND "ILL HIT YOU, ILL BITE YOU, ILL KICK YOU, IM GOING TO DARREL ALL OF YOU". X2 STAFF WITH ALL INTERACTIONS. P-CONTINUE TO MONITOR FOR ESCALATING BEHAVIORS. REDIRECT AND PRESENT REALITY NEEDED. ENCOURAGE MEDICATION COMPLIANCE. PROVIDE 1:1 WITH THERAPEUTIC INTERVENTIONS. MAINTAIN Q 15 MIN CHECKS AND X2 STAFF WITH INTERACTIONS FOR SAFETY.
--- NOTE | 2019-03-01 04:44 | NUR ---
24 HOUR CHART CHECK COMPLETED.
--- NOTE | 2019-03-01 05:28 | NUR ---
PATIENT SLEPT <1 HOUR THIS SHIFT. MULTIPLE AWAKENINGS NOTED OF PATIENT YELLING OUT AND/OR MAKE ANIMAL NOISES. PT UNABLE TO BE REDIRECTED, OBSERVED TO SELF CALM WITH OBSERVATION AND NON VERBAL INTERVENTION. NO SIGNS OR SYMPTOMS OF DISTRESS NOTED.
[2019-03-01 07:32] VITALS: BP 105/70
--- NOTE | 2019-03-01 09:57 | NUR ---
DR. VELEZ ON UNIT TO ASSESS PATIENT.
--- NOTE | 2019-03-01 11:52 | NUR ---
AM GROUP/CARDS/MUSIC PT ATTENDED AND PARTICIPATED TO BEST OF ABILITY. PT PLEASANT BUT EXPRESSING CONFUSION AT TIMES "AFTER THIS GAME OF CARDS IM GOING TO THE SALON AND GETTING MY HAIR DONE" PT EASILY REDIRECTED. PT LAUGHING OFTEN EVEN WHEN OTHERS AREN'T. NO HALLUCINATIONS EXPRESSED AT THIS TIME. PT WENT TO TAKE A NAP BEFORE LUNCH DUE TO ONLY SLEEPING ON E HOUR LAST NIGHT.
--- NOTE | 2019-03-01 15:36 | NUR ---
PM GROUP/MOVIE PT ATTENDED AND PARTICIPATED. PT PLEASANT AND ON TASK UNTIL OTHER PT'S MAKE TOO MUCH NOISE PT SAID "JEEZ SHUT UP ALREADY" AND BEGAN TO PULL HAIR. THIS STAFF REDIRECTED PT BY REMINDING HER TO FOCUS ON HER BREATHING. PT STATES "OK, OK" PT TALKING TO UNSEEN OTHERS AT TIMES AND WILL CONTINUE TO ATTEND AND PARTICIPATE IN FUTURE GROUP SESSIONS.
--- NOTE | 2019-03-01 16:52 | NUR ---
P: INCREASED ANXIETY. PT WOULD GET NERVOUS AND SHOW INCREASED ANXIETY AND REQUEST TO GO TO HER ROOM. I: PT REMOVED FROM HIGH STIMULATION AREA TO REDUCE ANXIETY. 1:1 PROVIDED TO PROVIDE THERAPEUTIC COMMUNICATION. ENCOURAGED MEDICATION COMPLAINCE. EDUCATED ON NEW MEDICATIONS. PT TAKEN TO HER ROOM SO SHE COULD REST AND REDUCE ANXIETY. SPOKE TO PT ABOUT SELF CALMING TECHNIQUES. PT STATED "YES I KNOW". R: PT ABLE TO CALM SELF DOWN WITH A LOW STIMULI ENVIRONMENT. RECEPTIVE WITH 1:1 AND CALMING TECHNIQUES. P: CONTINUE TO PROVIDE LOW STIMULI ENVIRONMENTS, PROVIDE 1:1 FOR THERAPEUTIC COMMUNICATION, ENCOURAGE MEDICATION COMPLIANCE, EDUCATE ON NEW MEDICATIONS, ENCOURAGE PARTICIPATION IN GROUP THERAPIES.
[2019-03-01 19:55] VITALS: BP 124/66
--- NOTE | 2019-03-01 23:37 | NUR ---
NO ADVERSE BEHAVIORS NOTED. PATIENT ALERT AND ORIENTED X3 WITH CONFUSION. PT CALM, COOPERATIVE, AND INTERACTIVE. DURING 1:1 PATIENT STATED THAT SHE WAS READY FOR BED, THAT SHE WAS UP THE NIGHT BEFORE SCREAMING BECAUSE SHE TALKS IN HER DREAMS. PT DENIES SI/HI AND HALLUCINATIONS, NO NOTED RESPONDING TO INTERNAL STIMULI. NO PARANOIA/DELUSIONS OBSERVED. PT REFUSED HS DOSE OF KENALOG OINTMENT STATING SHE DOESN'T NEED IT, COMPLIANT WITH REMAINING MEDICATIONS WITHOUT DIFFICULTY AFTER REVIEW. NO PHYSICAL COMPLAINTS VOICED. PATIENT CURRENTLY RESTING IN BED QUIETLY AT THIS TIME, NO SIGNS OR SYMPTOMS OF DISTRESS NOTED. PLAN IS TO CONTINUE TO MONITOR MOOD AND BEHAVIORS. REDIRECT AND REORIENT NEEDED. PROVIDE 1:1 FOR VENTILATION OF FEELINGS. ENCOURAGE MEDICATION COMPLIANCE AND EDUCATE. MAINTAIN Q 15 MIN CHECKS.
--- NOTE | 2019-03-02 01:28 | NUR ---
24 HOUR CHART CHECK COMPLETED.
--- NOTE | 2019-03-02 05:34 | NUR ---
PATIENT SLEPT APPROX 5 HOURS THIS SHIFT INTERRUPTED WITH MULTIPLE AWAKENINGS OF PATIENT YELLING OUT AND/OR MAKING ANIMALS NOISES. PATIENT UNRECEPTIVE OF REDIRECTION, STATES TO STAFF "IM DREAMING, I WAS IN HEAVEN VISITING MY MOM, TAKE ME TO THE PSYCH SANCHE[facility] NOW NOW NOW NOW". PT CONTINUES TO SELF CALM WITH OBSERVATIONS AND NON VERBAL INTERVENTION. NO SIGNS OR SYMPTOMS OF DISTRESS NOTED.
[2019-03-02 07:32] VITALS: BP 138/70
--- NOTE | 2019-03-02 13:08 | NUR ---
PATIENT COMPLAINING OF HEADACHE, RATING PAIN 10/10. PRN TYLENOL 650MG PO GIVEN AT THIS TIME.
--- NOTE | 2019-03-02 14:08 | NUR ---
NO FURTHER COMPLAINTS OF HEADACHE. PRN TYLENOL EFFECTIVE.
--- NOTE | 2019-03-02 15:37 | NUR ---
Shift chart check completed.
--- NOTE | 2019-03-02 18:24 | NUR ---
P: VISUAL AND AUDITORY HALLUCINATIONS- TALKING TO UNSEEN OTHER; YELLING OUT AT OTHER PATIENTS IN DINING. MAKING ANIMAL SOUND. I: ONE ON ONE, REDIRECTION, CHANGE OF ENVIRONMENT WITH LOW STIMULI. R: REDIRECTION AND CHANGE OF ENVIRONMENT EFFECTIVE. PATIENT IS ALERT TO PERSON AND PLACE WITH CONFUSION; ABLE TO VOICE NEEDS. MOOD IS IRRITABLE AT TIMES. MEDICAITON COMPLAINT WITH EDUCATION PROVIDED. Q 15 MINUTE SAFETY CHECKS MAINTAINED. INTERACTIVE WITH STAFF AND OTHER PATIENTS. PARTICIPATED IN GROUP SESSION. 1 PERSON ASSIST WITH ACTIVITIES OF DAILY LIVING, CONTINENT OF BOWEL AND BLADDER, SET UP FOR MEALS, INTAKES ARE GOOD WITH ADEQUATE FLUIDS. P: CONTINUE TO MONITOR OUTBURST; PROVIDE ONE ON ONE AND REDIRECTION NEEDED.
[2019-03-02 20:23] VITALS: BP 126/66
--- NOTE | 2019-03-02 23:45 | NUR ---
P-LABILE, DISRUPTIVE. PT CONTINUES TO INTERMITTENTLY YELL OUT AND/OR MAKE ANIMAL NOISES THROUGHOUT SHIFT. I-PRESENTED REALITY AND REDIRECTED. PROVIDED 1:1 WITH THERAPEUTIC INTERVENTIONS. PROVIDED SUPPORT. ENCOURAGE MEDICATION COMPLIANCE AND EDUCATE. MONITOR SLEEP. R- INTERVENTIONS EFFECTIVE, PT STATED "I YELL OUT BECAUSE IM MANIC BIPOLAR, I GET ANGRY SOMETIMES, OR IM HAVING A NIGHTMARES". MEDICATION COMPLIANT WITHOUT DIFFICULTY, EDUCATION PROVIDED. PT ALERT AND ORIENTED X3 WITH CONFUSION, ABLE TO MAKE NEEDS KNOWN. COOPERATIVE WITH HOC, ASSIST X1, NO AGITATION OR AGGRESSION NOTED. PT VOICES NO SI/HI, HALLUCINATIONS, OR PAIN. X1 SMALL EMESIS NOTED OF UNDIGESTED FOOD, PT STATED SHE FELT BETTER AND IS UNSURE WHY SHE THREW UP. VITALS WNL, LUNGS CLEAR TO AUSCULTATION. PT RESTING QUIETLY AT THIS TIME. NO SIGNS OR SYMPTOMS OF DISTRESS NOTED. P-CONTINUE TO MONITOR MOOD AND BEHAVIORS. REDIRECT AND PRESENT REALITY NEEDED.PROVIDE 1:1 WITH THERAPEUTIC INTERVENTIONS. ENCOURAGE MEDICATION COMPLIANCE. MAINTAIN Q 15 MIN CHECKS.
--- NOTE | 2019-03-03 05:52 | NUR ---
PATIENT OBSERVED ON Q 15 MIN CHECKS TO HAVE SLEPT APPROX 7 HOURS THIS SHIFT WITH BRIEF AWAKENINGS TO INTERMITTENTLY YELL OUT, EASILY REDIRECTED. NO SIGNS OR SYMPTOMS OF DISTRESS NOTED.
[2019-03-03 08:31] VITALS: BP 134/58; BP 136/97
--- NOTE | 2019-03-03 10:23 | NUR ---
Treatment plan meeting held with Dr Lockhart, RN, PROGRAM COORDINATOR FOR [employer], and outpatient coordinator. Discharge date undetermined at this time. Will return to [facility] upon discharge.
--- NOTE | 2019-03-03 11:37 | NUR ---
AM GROUP PT WAS PRESENT FOR MORNING GROUP THERAPY AND PARTICIPATED BY PLAYING CARDS WITH THIS CLOSET BUILDER FOR A SHORT TIME. PT WAS PREOCCUPIED WITH DELUSIONAL THINKING STATING, "I'M AN IVANIA", "I LAST NIGHT" , "I STINK", ETC. PT HAD DIFFICULTY STAYING WITH ANY TASK AND WHEN A MALE PEER WOULD ENTER THE ROOM PT WOULD YELL AT HIM, SPIT AT HIM AND GROWL AT HIM.
--- NOTE | 2019-03-03 15:40 | NUR ---
PM GROUP PT DID NOT ATTEND AFTERNOON GROUP THERAPY. PT WAS IN BED RESTING.
--- NOTE | 2019-03-03 15:44 | NUR ---
Clincial update faxed to [place] at [facility].
--- NOTE | 2019-03-03 20:27 | NUR ---
EVENING/RELAXTION/MUSIC/STORY PT ATTENDED FIRST PART OF GROUP TO GET NAILS PAINTED AND ENGAGED WITH COLOR THERAPY VIDEO. PT EVENTUALLY WENT TO ROOM TO NOT RETURN TO GROUP. PT DID NOT EXPRESS ANY HALLUCINATIONS OR MANIC BEHAVIOR AT THIS TIME. PT WILL CONTINUE TO ATTEND AND PARTICIPATE IN GROUP TO BEST OF PT ABILITY.
[2019-03-03 20:43] VITALS: BP 122/64
--- NOTE | 2019-03-04 00:57 | NUR ---
P-LABILE, DISRUPTIVE. PT CONTINUES TO INTERMITTENTLY YELL OUT AND/OR MAKE ANIMAL NOISES THROUGHOUT SHIFT. I-PRESENTED REALITY AND REDIRECTED. PROVIDED 1:1 WITH THERAPEUTIC INTERVENTIONS. PROVIDED SUPPORT. ENCOURAGE MEDICATION COMPLIANCE AND EDUCATE. MONITOR SLEEP. R- INTERVENTIONS EFFECTIVE, PT STATED "IM GOING TO DO BETTER TODAY, LESS YELLING OUT". MEDICATION COMPLIANT WITHOUT DIFFICULTY, EDUCATION PROVIDED. PT ALERT AND ORIENTED X3 WITH CONFUSION, ABLE TO MAKE NEEDS KNOWN. COOPERATIVE WITH HOC, ASSIST X1, NO AGITATION OR AGGRESSION NOTED. PT VOICES NO SI/HI, HALLUCINATIONS, OR PAIN. PT RESTING QUIETLY AT THIS TIME. NO SIGNS OR SYMPTOMS OF DISTRESS NOTED. P-CONTINUE TO MONITOR MOOD AND BEHAVIORS. REDIRECT AND PRESENT REALITY NEEDED.PROVIDE 1:1 WITH THERAPEUTIC INTERVENTIONS. ENCOURAGE MEDICATION
--- NOTE | 2019-03-04 05:35 | NUR ---
24 HOUR CHART CHECK COMPLETED.
--- NOTE | 2019-03-04 06:23 | NUR ---
PATIENT OBSERVED ON Q 15 MIN CHECKS TO HAVE SLEPT APPROX 9 HOURS WITH X2 BRIEF AWAKENINGS DURING STAFF CHECKS. NO SIGNS OR SYMPTOMS OF DISTRESS NOTED.
[2019-03-04 08:07] VITALS: BP 144/61
--- NOTE | 2019-03-04 11:37 | NUR ---
Treatment Plan meeting with Dr. Lockhart, RN, AT, SW and Philosophy Professor. Plan for discharge next week. Pt. will return to [facility] at discharge.
--- NOTE | 2019-03-04 11:38 | NUR ---
AM GROUP PT ATTENDED AND PARTICIPATED IN MORNING GROUP THERAPY. PT SAT AT A TABLE WITH PEERS AND COLORED FOR A WHILE. PT THEN CRADLED AND TENDED TO THE BABY DOLL FOR THE REST OF GROUP. PT WAS LESS LABILE AND WAS FOR THE MOST PART QUIET. PT EXHIBITED NO AGITATION OR AGGRESSION WHILE IN GROUP
--- NOTE | 2019-03-04 14:10 | NUR ---
Patient seated in w/c at table in dining area/activity area with emesis quezada, gagging and attempting to vomit. OTR will attempt OT eval at a later date. Justa Briones OTR/l
--- NOTE | 2019-03-04 14:37 | NUR ---
PT HAD 2 SMALL EMESIS OF UNDIGESTED FOOD. MAALOX GIVEN. DR ESPINO UPDATED AND NEW ORDER RECEIVED FOR ZOFRAN 4MG SL.
--- NOTE | 2019-03-04 14:53 | NUR ---
ZOFRAN GIVEN AT THIS TIME FOR NAUSEA AND VOMITING.
--- NOTE | 2019-03-04 15:52 | NUR ---
PM GROUP PT WAS PRESENT AT THE START OF GROUP DEMANDING THAT I TAKE HER TO HER ROOM. PT BEGAN YELLING, "TAKE ME TO MY ROOM! TAKE ME TO THE ROOM! WHORE! WHORE! WHORE!" AND RAN HER WHEELCHAIR INTO ANOTHER PT. PT WAS REMOVED FROM THE GROUP ROOM.
[2019-03-04 20:00] VITALS: BP 142/62
--- NOTE | 2019-03-04 20:27 | NUR ---
EVENING/BINGO/STORY PT ATTENDED AND PARTICIPATED IN GROUP. PT PLEASNAT AND ON TASK WITH NO HALLUCINATIONS EXPRESSED AT THIS TIME. PT WILL CONTINUE TO ATTEND AND PARTICIPATE IN FUTURE GROUP SESSIONS.
--- NOTE | 2019-03-04 23:34 | NUR ---
24 HR chart check completed.
--- NOTE | 2019-03-05 05:38 | NUR ---
PT WAS AWAKE IN HER ROOM AFTER LAYING DOWN IN BED & FOR APPROX 1 HOUR SHE YELLED OUT & MADE INTERMITTENT ANIMAL SOUNDS OF A [place] & A MONKEY. SLEPT PAST 0200.
[2019-03-05 07:46] VITALS: BP 132/60
--- NOTE | 2019-03-05 08:30 | NUR ---
Treatment Plan meeting with Dr. Lockhart, RN, AT, SW and Circular Sawyer Helper. Plan for discharge next week. Pt. will return to [facility] at discharge.
--- NOTE | 2019-03-05 09:48 | NUR ---
Patient pleasant this AM and hyperverbal. Pt stated that she was in the hospital because she was manic but that no one believes her. 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 Pt then stated that she could be a mental health social worker and wants to be a mental health social worker because pt needs to make money. Pt then spoke of everyone needing money. Pt was interrupted by another pt speaking. Pt tolerated the interruption well.
--- NOTE | 2019-03-05 11:10 | NUR ---
Occupational Therapy evaluation completed on 3N with full eval to follow. Precautions include w/c dependency, +1 mod assist for transfers and assist with ADLs; bathing, toileting, dressing, moderate complexity level 54532 via chart review, testing and evaluation. Recommend no further OT and return to correction at w/c ht as prior level. Thank you. Justa Briones OTR/l
--- NOTE | 2019-03-05 11:50 | NUR ---
AM GROUP/MUSIC AND LIGHT THERAPY PT WAS PRESENT FOR MORNING GROUP THERAPY BUT WAS VERY AGITATED AND LEFT THE DAYROOM. PT DID NOT RETURN.
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
--- NOTE | 2019-03-05 15:36 | NUR ---
PM GROUP PT DID NOT ATTEND AFTERNOON GROUP THERAPY. PT WAS IN BED RESTING
--- NOTE | 2019-03-05 15:54 | NUR ---
Shift chart check completed.
[2019-03-05 20:00] VITALS: BP 130/64
--- NOTE | 2019-03-05 20:23 | NUR ---
24 HR chart check completed.
--- NOTE | 2019-03-05 23:30 | NUR ---
PT WAS ASSISTED TO BED APPROX. 1930. SHE HAS REMAINED IN BED SLEEPING QUIETLY. AROUSES EASILY WHEN SPOKEN TO. COMPLAINT TAKING HS MEDICATIONS WHOLE. REMAINED IN BED SLEEPING. DENIES ANY PHYSICAL DISCOMFORT.
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
[2019-03-06 08:00] VITALS: BP 132/68
--- NOTE | 2019-03-06 08:44 | NUR ---
PHYSICAL THERAPY Physical therapy evaluation completed, 3N. Full details to follow. Moderate complexity determined after evaluation/chart review, 51999. Pt appears to be at baseline. Encouraged to ambulate short distances with nursing staff using walker or propel using manual wheelchair. Recommend returning to [facility] at discharge. Thank you Constance Narayanan, PT, DPT
--- NOTE | 2019-03-06 10:41 | NUR ---
P: YELLING OUT, DELUSIONS, NONSENSICAL SPEECH PATTERN. ARGUING WITH PEER I: REDIRECT, DISTRACT WITH ACTIVITIES AND INTERACTION. ENSURE SPACE BETWEEN HER AND PEER OR DIFFERENT ACTIVITIES. R: PT WILL SEEK OUT PEER AND BEGIN ARGUING "SHUT UP, YOUR EVIL" STAFF IMMEDIATLY REDIRECTS PTS DUE TO PEER RESPONDS BACK. PT CONTINUES TO YELL OUT RANDOMLY WITH ANGRY TONES BUT IS EASILY REDIRECTED WITH MUSIC OR CONVERSATION 1 ON 1. P: CONTINUE TO MONITOR PT FOR MEDICATION EFFECTIVNESS AND SIDEAFFECTS. NO SI/HI NOTED. PT WILL TALK ABOUT RANDOM TOPICS IF THEY HAPPENED RECENTLY UNABLE TO CONFIRM IF THEY ARE DELUSIONS OR MEMORY CONFUSION. PT MEDICATION COMPLIANT TODAY WITHOUT DIFFICULTY
--- NOTE | 2019-03-06 11:35 | NUR ---
PT COMPLAINT OF GAS AND UPSET STOMACH. MAALOX GIVEN AT THIS TIME
--- NOTE | 2019-03-06 11:36 | NUR ---
AM GROUP PT ATTENDED MORNING GROUP THERAPY AND PARTICIPATED BY COLORING AND SOCIALIZING WITH THIS WOOL FLEECE SORTER AND NURSING STUDENTS. PT EXPRESSED DELUSIONAL IDEATIONS BY STATING, "I'M " AND LIFTING HER SHIRT TO DEMONSTRATE. PT WAS VERY LABILE BUT REDIRECTABLE.
--- NOTE | 2019-03-06 12:20 | NUR ---
Discharge Plan remains unchanged. Plan for discharge next week. Pt. to return to [facility] at discharge.
--- NOTE | 2019-03-06 15:36 | NUR ---
PM GROUP PT ATTENDED AFTERNOON GROUP THERAPY AND PARTICIPATED BY SOCIALIZING WITH THE NURSING STUDENTS. PT WAS NOTED TO BE TALKING AND WHEN ASKED TO WHOM STATED, "MYSELF". PT HAD A FEW INAPPROPRIATE OUTBURSTS BUT WAS EASILY REDIRECTED.
[2019-03-06 20:22] VITALS: BP 124/63
--- NOTE | 2019-03-06 21:41 | NUR ---
24 HR chart check completed.
--- NOTE | 2019-03-07 00:53 | NUR ---
PT ATE SNACK WHILE SITTING IN THE DINING ROOM. WENT TO BED APPROX 2029. COMPLIANT TAKING MEDICATIONS WHOLE. NO AGITAION OR BEHAVIORS THIS EVENING. ALERT & ORIENTED TO PERSON, PLACE, TIME & STATED SHE IS HERE FOR OBSERVATION.
--- NOTE | 2019-03-07 06:10 | NUR ---
PT SLEPT PAST . SHE BEGAN YELLING UPON AWAKENING. ASSISTED TO BATHROOM & WHEELCHAIR & BROUGHT DOWN TO QUIET ROOM NEAR NURSES STATION SO HER ROOM MATE WOULD NOT BE DISTURBED BY HER YELLING. MOOD VERY LABILE THIS AM.
[2019-03-07 08:00] VITALS: BP 132/66
--- NOTE | 2019-03-07 08:30 | NUR ---
Treatment Plan meeting was held this a.m. with Dr. Lockhart, RN, AT, MASSAGE THERAPIST-S and Operating Room Surgical Technician in attendance. Plan for discharge next week with return to [facility].
--- NOTE | 2019-03-07 11:38 | NUR ---
AM GROUP PT ATTENDED MORNING GROUP THEAPY AND PARTICIPATED BY SOCIALIZING WITH NURSING STUDENTS. PT IS AT BASELINE PRESENTING DELUSIONS SUCH BEING OR HAVING LAST NIGHT. PT EXHIBITED NO AGITATION OR AGGRESSION WHILE IN GROUP
--- NOTE | 2019-03-07 12:30 | NUR ---
Spoke with Krista Moya At [facility]. Notified of Plans to discharge Next week. Clinical Updates faxed to Facility Attn: Krista Day [phone].
--- NOTE | 2019-03-07 14:09 | NUR ---
Shift chart check completed.
--- NOTE | 2019-03-07 14:28 | NUR ---
P- YELLING OUT; DELUSIONAL THOUGHT PROCESS NOTED; YELLING AT PEERS. ALERT TO PERSON AND PLACE ONLY. LABILE. I- ASSESS MOOD, ORIENTATION, SI/HI, HALLUCINATIONS, DELUSIONS OR PAIN. PROVIDE MEDICATIONS ON TIME WITH EDUCATION ON EACH. 1:1 THERAPEUTIC INTERACTION WITH EMOTIONAL SUPPORT AND VENTILATION OF FEELINGS PROVIDED. ENCOURAGE TO UTILIZE COPING/RELAXATION TECHNIQUES. PROVIDE LOW STIMULI/LIGHT ENVIRONMENT. PROVIDE REORIENTATION WITH CONFUSION. PROVIDE REDIRECTION WHEN TARGETING OTHER PEERS. ENCOURAGE TO ATTEND/PARTICIPATE IN GROUP THERAPIES FOR EMOTIONAL SUPPORT AND SOCIALIZATION. R- REMAINS AT BASELINE CONFUSION EVEN WITH REORIENTATION PROVIDED. PATIENT YELLING OUT INTERMITTENTLY, NONSENSICAL; REDIRECTION AND 1:1 INTERACTION EFFECTIVE, PT CALMS DOWN. PT PICKS OTHER PEERS AND STARTS YELLING AT THEM, PT STATED "I HATE YOU, I WILL COME OVER THERE", YELLING NONSENSICAL. PT REDIRECTED AND PROVIDED WITH LOW STIMULI ENVIRONMENT, EFFECTIVE. PT LOOKED AT THIS NURSE AND STATED "YOU ARE , WELL ME TOO", PT LIFTED UP HER SHIRT EXPOSING HERSELF; REDIRECTION EFFECTIVE/REALITY PRESENTATION INEFFECTIVE. DENIES SI/HI, HALLUCINATIONS OR PAIN. NO S/S OF INTERACTING WITH INTERNAL STIMULI. NO DELUSIONAL THOUGHT PROCESS NOTED. NO S/S OF DISTRESS NOTED. RESPS EVEN AND UNLABORED ON ROOM AIR. MOOD REMAINS LABILE. INTERACTIVE AND PARTICIPATING. MEDICATION COMPLIANT. UTILIZE WHEELCHAIR DUE TO UNSTEADY GAIT. ONE ASSIST WITH TRANSFERING, ADLS AND CARE DUE TO UNSTEADY GAIT. MAKES NEEDS KNOWN. P- ASSESS MOOD, ORIENTATION, SI/HI, HALLUCINATIONS, DELUSIONS, OR PAIN EVERY SHIFT. PROVDE REORIENTATION, REDIRECTION AND REALITY PRESENTATION. ENCOURAGE TO UTILIZE COPING/RELAXATION TECHNIQUES. 1:1 INTERACITON PROVIDED NEEDED. PROVIDE WITH LOW STIMULI/LIGHT ENVIORNMENT. FALLING STAR PROGRAM IN PLACE. Q15 MINUTE CHECKS MAINTAINED FOR SAFETY.
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
--- NOTE | 2019-03-07 15:33 | NUR ---
PM GROUP PT DID NOT ATTEND AFTERNOON GROUP THERAPY. PT WAS IN BED RESTING
[2019-03-07 19:55] VITALS: BP 136/70
--- NOTE | 2019-03-07 21:36 | NUR ---
Patient alert and oriented x3. Patient isolative to her room and resting in bed. Patient making pig noises at this time. Patient compliant with medications without any difficulty. Provided 1:1 for emotional support. Patient cooperative with hands on care. Plan to continue to encourage medication compliance and continue to provide emotional support. Q 15 minute safety checks continued and maintained. See [facility] flowsheet for further documentation.
--- NOTE | 2019-03-08 00:07 | NUR ---
24 HR chart check completed.
--- NOTE | 2019-03-08 05:24 | NUR ---
Patient slept approx. 45 minutes throughout shift. Q 15 minute safety checks continued and maintained.
[2019-03-08 07:35] VITALS: BP 141/66
--- NOTE | 2019-03-08 08:57 | NUR ---
PT STATED SHE HEARS VOICES OF HER AND SHE SINGS TO THEM AT TIMES. DENIES PAIN, NAUSEA, AND VOMITING. MEDICATION COMPLIANT WITHOUT DIFFICULTY. MEDICATION EDUCATION PROVIDED. ALERT TO PERSON, PLACE, TIME, AND SITUATION. DENIES SI/HI. VITAL SIGNS WNL. PT STATED SHE DID NOT SLEEP WELL LAST NIGHT HOWEVER SHE WILL SLEEP BETTER TONIGHT. SPEAKING TO UNSEEN OTHERS DURING MED PASS.
--- NOTE | 2019-03-08 11:46 | NUR ---
AM GROUP/BINGO/MUSIC PT IN ATTENDANCE AND PARTICIPATED ENTIRE GROUP. PT PLAYING BINGO AND DANCING ALONG TO MUSIC. PT PLEASANT WITH NO HALLUCINATIONS OR DANUTA EXPRESSED AT THIS TIME. PT WILL CONTINUE TO ATTEND AND PARTICIPATE IN FUTURE GROUP SESSIONS.
[2019-03-08 12:10] LABS: BILIRUBIN NEGATIVE (NEGATIVE); BLOOD TRACE-INTACT (NEGATIVE); CLARITY CLOUDY (CLEAR); COLOR YELLOW (YELLOW); GLUCOSE NEGATIVE (NEGATIVE); KETONE NEGATIVE (NEGATIVE); LEUKO ESTERASE 3+ (NEGATIVE); NITRITE NEGATIVE (NEGATIVE); PH 5.5 (5.0-9.0); SPECIFIC GRAVITY 1.015 (1.005-1.030); UROBILINOGEN 0.2 E.U./dl (0.2-1.0)
[2019-03-08 12:19] LABS: WBC TNTC wbc/hpf (0-5)
[2019-03-08 12:20] LABS: BACTERIA 4+
--- NOTE | 2019-03-08 15:48 | NUR ---
PM GROUP/LEISURE SKILLS PT IN ATTENDANCE NURSING HOME THROUGH GROUP. PT PARTICIPATED THROUGH SOCIALIZATION AND OBSERVING THE HALLMARK CHANNEL. PT DID NOT EXPRESS NAY HALLUCINATIONS OR DANUTA IN GROUP AT THIS TIME. PT WILL CONTINUE TO BE ENCOURAGED TO ATTEND AN DPARTICIPATE TO BEST OF ABILITY.
[2019-03-08 19:39] VITALS: BP 131/64
--- NOTE | 2019-03-08 21:37 | NUR ---
EASILY AWAKEND FOR MEDICATION. TAKES PILLS WHOLE IN APPLESAUCE. CLIENT NOT INTERESTED IN 1:1 WANTS TO GO BACK TO SLEEP. WILL CONTINE TO MONITOR
--- NOTE | 2019-03-08 21:54 | NUR ---
PT IN ROOM SCREAM OUT AT INTERVALS. CLIENT STATES SHE JUST LIKES TO YELL. WILL MONITOR HER SAFETY
--- NOTE | 2019-03-09 05:27 | NUR ---
24 HR chart check completed. SLEPT PAST 1900PM WITH APPROX 2 HOURS IN AWAKENINGS THIS SHIFT
--- NOTE | 2019-03-09 06:30 | NUR ---
UP IN DININGROOM. REMAINS IN PJ GOWN. WATCHING TV IN DININGROOM
[2019-03-09 07:17] VITALS: BP 124/56
--- NOTE | 2019-03-09 11:29 | NUR ---
AM GROUP/REMINISCE PT IN ATTENDANCE AND PARTICIPATED IN ALL ACTIVITY. PT PLEASANT AND ON TASK WITH NO HALLUCINATIONS OR DANUTA EXPRESSED AT THIS TIME. PT WILL CONTINUE TO ATTEND AND PARTICIPATE IN FUTURE GROUP SESSIONS.
--- NOTE | 2019-03-09 17:29 | NUR ---
PT STATED SHE STILL HEARS VOICES OF HER AND SHE SINGS TO THEM AT TIMES. DENIES PAIN, NAUSEA, AND VOMITING. MEDICATION COMPLIANT WITHOUT DIFFICULTY. MEDICATION EDUCATION PROVIDED. ALERT TO PERSON, PLACE, TIME, AND SITUATION. DENIES SI/HI. VITAL SIGNS WNL. SEE [facility] FLOW SHEET FOR SPECIFIC MONITORING.
[2019-03-09 19:35] VITALS: BP 112/62
--- NOTE | 2019-03-09 20:38 | NUR ---
UP IN DININGROOM. SAYS DAY WAS "OK".. EATING SNACK. UPPER DENTURE CONTINUES TO FALL OUT. WILL PUT POLYDENT ON IN AM. CLIENT LAUGHING SO HARD TEETH COMES OUT. MEDICATION COMPLIANT. DENIES ANY PROBLEMS OR ISSUES SHE WANTS TO DISCUSS. WILL CONTINUE TO MONITOR FOR CHANGES IN BEHAVIOR/MOOD AND SAFETY.
--- NOTE | 2019-03-10 06:25 | NUR ---
SLEPT POOR ALL NIGHT. IN BED 2200PM BUT CONTINUALLY YELLING OUT Q 15-30 MINUTES WHICH IS WHY ROOMMATE WAS REMOVED.
--- NOTE | 2019-03-10 06:27 | NUR ---
24 HR chart check completed.
--- NOTE | 2019-03-10 06:40 | NUR ---
REFUSES TO STAND TO GET OUT OF BED. REFUSES AM LASIX. WILL TRY AGAIN LATER.
--- NOTE | 2019-03-10 07:40 | NUR ---
DR. BEAVER ON UNIT TO ASSESS PATIENT.
[2019-03-10 08:00] VITALS: BP 125/81
--- NOTE | 2019-03-10 08:30 | NUR ---
Per Treatment Plan meeting this a.m. Plan for Discharge Sun/ with Return to [facility].
--- NOTE | 2019-03-10 10:37 | NUR ---
DR LINDSEY UPDATED ON PT URINE CULTURE. STATED HE WILL TAKE A LOOK.
--- NOTE | 2019-03-10 11:23 | NUR ---
P: DISRUPTIVE. YELLING OUT, MAKING ANIMAL SOUNDS, AND USING NONSENICAL SPEECH. I: REORIENTED PT, PROVIDED 1:1 FOR THERAPEUTIC COMMUNICATION. ATTEMPTED TO REDIRECT PT. ENCOURAGED MEDICATION COMPLIANCE. ENCOURAGED PARTICIPATION IN GROUP. R: PT REMAINS ALERT TO PERSON AND PLACE. MEMORY DEFICITS NOTED. CONTINUES TO YELL INTERMITTENTLY OUT DESPITE REDIRECTION. DISRUPTIVE WITH YELLING. MEDICATION COMPLIANT WITHOUT DIFFICULTY. UNABLE TO PROVIDE MEDICATION EDUCATION DUE TO COGNITIVE IMPAIRMENT. PT ATTENDED GROUP. YELLED OUT ONE TIME DURING GROUP AND WAS ABLE TO CALM SELF. DENIES SI/HI. NO HALLUCINATIONS OR DELUSIONS NOTED. P: ENCOURAGE MEDICATION COMPLIANCE AND PARTICIPATION IN GROUP. REDIRECT AND REORIENT WHEN NEEDED. CONTINUE TO PROVIDE THERAPEUTIC COMMUNICATION. SEE [facility] FLOWSHEET FOR SPECIFIC MONITORING.
--- NOTE | 2019-03-10 11:33 | NUR ---
AM GROUP/LIGHT AND MUSIC THERAPY PT ATTENDED MORNING GROUP THERAPY AND PARTICIPATED BY LISTENING TO MUSIC AND CUDDLING THE BABYDOLL. PT EXHIBITED NO AGITATION OR AGGRESSION WHILE IN GROUP. PT WILL MAKE STATEMENTS FOR "SHOCK FACTOR" AND IF SHE DOESN'T GET A RESPONSE, SHE STOPS. FOR EXAMPLE, PT STATED, "I GOT LAST NIGHT AND WE HAD SEX ALL NIGHT LONG" MY RESPONSE, "COOL". PT DIDN'T KNOW WHAT TO SAY TO THAT.
--- NOTE | 2019-03-10 15:25 | NUR ---
Shift chart check completed.
--- NOTE | 2019-03-10 15:39 | NUR ---
PM GROUP PT ATTENDED AFTERNOON GROUP THERAPY AND PARTICIPATED BY WATCHING A MOVIE AND LISTENING TO JOKES. PT EXPRESSED NO DELUSIONS OR HALLUCINATIONS WHILE IN GROUP.
[2019-03-10 19:06] VITALS: BP 140/70
[2019-03-10 19:12] VITALS: BP 130/81
--- NOTE | 2019-03-10 20:28 | NUR ---
EVENING/AROMATHERAPY/MUSIC/REMINISCE PT PARTICIPATED IN ALL ACTIVITY'S. PT PLEASANT AND ON TASK WITH NO EXPRESSED HALLUCINATIONS OR DANUTA AT THIS TIME.
--- NOTE | 2019-03-10 21:12 | NUR ---
Patient alert and oriented x3. Patient interacting with staff and other patients in diningroom during snacks. Memory deficits noted. Patient cooperative at this time with staff. Patient compliant with medications without any difficulty. Provided 1:1 for emotional support. Patient cooperative with hands on care. Plan to continue to encourage medication compliance and continue to provide emotional support. Q 15 minute safety checks continued and maintained. See [facility] flowsheet for further documentation.
--- NOTE | 2019-03-11 00:16 | NUR ---
24 HR chart check completed.
--- NOTE | 2019-03-11 05:00 | NUR ---
Patient has been having harsh moist cough several times throughout shift.
--- NOTE | 2019-03-11 05:15 | NUR ---
Patient slept approx. 7 1/2 hours throughout shift. Q 15 minute safety checks continued and maintained.
--- NOTE | 2019-03-11 06:35 | NUR ---
Patient had large emesis of emesis of mucus. Medicated with Zofran po prn for nausea. Will monitor effectiveness.
[2019-03-11 08:00] VITALS: BP 118/61
--- NOTE | 2019-03-11 08:00 | NUR ---
Patient resting quietly with no c/o discomfort. Respirations easy and regular. Vital signs stable. No overt distress. MARIAM NAILS
--- NOTE | 2019-03-11 08:30 | NUR ---
Treatment Plan meeting was held this a.m. with Dr. Lockhart, RN, AT, KEYBOARD SPECIALIST-S and Patient Relations Liaison in Attendance. plan for discharge Sun/ with return to [facility].
--- NOTE | 2019-03-11 09:58 | NUR ---
P: PT STATES "I'M MAD THAT I HAVE TO LEAVE. I DON'T WANT TO". I: PT PROVIDED WITH EMOTIONAL SUPPORT. ASSESSED FOR DEPRESSED MOOD AND ANXIOUSNESS. PT EDUCATED ON TREATMENT PLAN. ADMINISTERED MEDICATIONS PER ORDER. R: PT STATES "WELL, I DON'T WANT TO LEAVE. I WANT TO STAY HERE." STATES SHE STILL FEELS A "LITTLE SAD". DENIES ANXIOUSNESS, SI, INTENT OR PLAN. MEDICATION COMPLIANT WITHOUT DIFFICULTY. P: WILL CONTINUE TO PROVIDE EMOTIONAL SUPPORT. WILL CONTINUE PROVIDE EDUCATION AND COPING SKILLS APPROPRIATE. CONTINUE MEDICATION COMPLIANCE. Q15 MIN MONITORING PER DR. CASTREJON.
--- NOTE | 2019-03-11 10:18 | NUR ---
DR. YU ON UNIT TO ASSESS PATEINT.
--- NOTE | 2019-03-11 10:54 | NUR ---
Spoke with Krista Akhtar at [facility]. Advised of Plans to discharge Sunday or with return to facility. Krista Day States that " would work Better". Advised MARCIN Whitfield.
--- NOTE | 2019-03-11 11:28 | NUR ---
AM GROUP PT ATTENDED MORNING GROUP THERAPY AND PARTICIPATED BY PLAYING GAMES WITH NURSING STUDENTS. PT EXHIBITED NO AGIATION OR AGGRESSION DURING GROUP AND HER INTERACTIONS WERE APPROPRIATE. PT EXPRESSED NO DELUSIONAL IDEATIONS WHILE IN GROUP
--- NOTE | 2019-03-11 12:59 | NUR ---
The patient has no complaints and is quietly watching a movie with peers. MARIAM NAILS
--- NOTE | 2019-03-11 18:29 | NUR ---
Shift chart check completed.
--- NOTE | 2019-03-11 18:29 | NUR ---
The patient has no complaints and is sitting quietly in dining room with peer at this time. MARIAM NAILS
[2019-03-11 18:59] VITALS: BP 113/62
--- NOTE | 2019-03-11 23:17 | NUR ---
P-CONFUSION I-REDIRECTION WITH 1:1 THERAPEUTIC INTERVENTIONS AND PRESENT REALITY. EDUCATE AND ENCOURAGE MEDICATION COMPLIANCE R-PATIENT WITH SHORT TERM AND SHIFT LAB TECHNICIAN MEMORY DEFICITS. PATIENT MEDICATION COMPLIANT. PATIENT ON MACROBID FOR +UTI. NO ADVERSE REACTION NOTED. PATIENT WITH MOIST NONPRODUCTIVE COUGH. PATIENT TOLERATING MUCINEX WITHOUT DIFFICULTY. PATIENT PROVIDED NOURISHMENT AND FLUIDS AT HS. P-CONTINUE TO ENCOURAGE MEDICATION COMPLIANCE, CONTINUE TO PRESENT REALITY, ENCOURAGE GROUP THERAPY WHILE AWAKE
--- NOTE | 2019-03-12 06:12 | NUR ---
PATIENT SLEPT 8 HOURS OF UNINTERRUPTED SLEEP THROUGHOUT SHIFT. Q 15 MINUTE CHECKS MAINTAINED. 24 HR chart check completed.
[2019-03-12 07:58] VITALS: BP 125/51
--- NOTE | 2019-03-12 08:30 | NUR ---
Treatment Plan meeting was held this a.m. with Dr. Lockhart, RN, AT, FLIGHT CREW SCHEDULER-S and Administrative Services Officer in Attendance. Plan for discharge with return to [facility].
--- NOTE | 2019-03-12 09:48 | NUR ---
Received Call from Krista Akhtar at [facility]. [facility] can provide transportation but are only able to pick patient up Sunday. Will call with time. Clinical Updates faxed to facility.
--- NOTE | 2019-03-12 10:25 | NUR ---
DR. YU ON UNIT TO ASSESS PT, UPDATE PROVIDED.
--- NOTE | 2019-03-12 11:36 | NUR ---
AM GROUP/MUSIC AND GAMES PT ATTENDED MORNING GROUP THERAPY AND PARTICIPATED BY PLAYING GAMES AND SINGING ALONG WITH THE MUSIC. PT EXPRESSED NO HALLUCINATIONS WHILE IN GROUP
--- NOTE | 2019-03-12 15:37 | NUR ---
PM GROUP PT ATTENDED AND PARTICIPATED IN AFTERNOON GROUP THERAPY. PT EXPRESSED NO HALLUCINATIONS OR DELUSIONS WHILE IN GROUP.
[2019-03-12 19:30] VITALS: BP 121/64
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
--- NOTE | 2019-03-13 05:45 | NUR ---
PATIENT SLEPT 8 HOURS OF UNINTERRUPTED SLEEP THROUGHOUT SHIFT. Q 15 MINUTE CHECKS MAINTAINED. 24 HR chart check completed.
[2019-03-13 06:55] LABS: BASO # 0.1 10*3/uL (0.0-0.1); BASO % 0.9 % (0.0-1.0); EOS # 0.1 10*3/uL (0.0-0.4); EOS % 1.6 % (1.0-4.0); HEMATOCRIT 42.7 % (37.0-47.0); HEMOGLOBIN 13.4 g/dl (12.0-16.0); LYMPH # 2.3 10*3/uL (1.3-4.4); LYMPH % 39.6 % (27.0-41.0); MEAN CELL VOLUME 97.3 fl (81.0-99.0); MEAN CORPUSCULAR HGB 30.5 pg (27.0-31.0); MEAN CORPUSCULAR HGB CONC 31.4 g/dl (33.0-37.0); MEAN PLATELET VOLUME 11.1 fl (9.6-12.3); MONO # 0.6 10*3/uL (0.1-1.0); NEUT # 2.7 10*3/uL (2.3-7.9); PLATELET COUNT AUTOMATED 209 10*3/uL (130-400); RED BLOOD COUNT 4.39 10*6/uL (4.10-5.10); RED CELL DISTRI WIDTH 13.8 % (0-14.5); WHITE BLOOD COUNT 5.7 10*3/uL (4.8-10.8)
[2019-03-13 07:10] LABS: ALBUMIN 2.7 gm/dl (3.1-4.5); BUN 21 mg/dl (7-24); CHLORIDE 100 mmol/L (98-107); CREATININE 0.83 mg/dL (0.55-1.02); POTASSIUM 3.7 mmol/L (3.5-5.1); SGOT/AST 23 IU/L (3-35); SGPT/ALT 14 U/L (12-78); SODIUM 139 mmol/L (136-145); TOTAL PROTEIN 7.2 gm/dL (6.4-8.2)
[2019-03-13 07:19] LABS: ALKALINE PHOSPHATASE 95 U/L (45-117)
--- NOTE | 2019-03-13 07:40 | NUR ---
SITTING IN DINING ROOM WITH PEERS EATING BREAKFAST, INTERACTING. NO VOICED COMPLAINTS. NO S/S OF DISTRESS NOTED. RESPS EVEN AND UNLABORED ON ROOM AIR.
[2019-03-13 07:59] VITALS: BP 142/71
--- NOTE | 2019-03-13 08:30 | NUR ---
Treatment Plan meeting was held this a.m. with Dr. Lockhart, RN, AT, SW and Insurance Counselor in attendance. Plan for discharge Sunday with return to [facility]. Spoke with Krista Akhtar this morning who advised that they will transport patient with roller picker time between 10:30-11:00 Sunday.
--- NOTE | 2019-03-13 09:16 | NUR ---
P- CONFUSION AND ST/LT MEMORY DEFICITS NOTED. LABILE MOOD. YELLING OUT AT TIMES. I- ASSESS MOOD, ORIENTATION, SI/HI, HALLUCINATIONS, DELUSIONS, OR PAIN. REORIENT WITH CONFUSION. 1:1 THERAPEUTIC INTERACTION WITH EMOTIONAL SUPPORT AND VENTILATION OF FEELINGS PROVIDED WHEN NECESSARY, PROVIDE REASSURANCE. ENCOURAGE TO ATTEND/PARTICIPATE IN GROUP THERAPY AND MILIEU ACTIVITIES. ONE ASSIST WITH ADLS, CARE, TRANSFERING, AND TOILETING DUE TO UNSTEADY GAIT. R- ALERT TO PERSON AND PLACE. REORIENTATION EFFECTIVE AT TIMES. MOOD REMAINS LABILE; YELLING OUT NONSENSICAL AT TIMES. REDIRECTION, REASSURANCE, AND 1:1 THERAPEUTIC INTERACTION EFFECTIVE WITH LABILE MOOD AND YELLING OUT. DENIES SI/HI, HALLUCINATIONS OR PAIN. NO S/S OF INTERACTING WITH INTERNAL STIMULI. NO S/S OF DISTRESS NOTED. RESPS EVEN AND UNLABORED ON ROOM AIR. EATING AND DRINKING ADEQUATELY. INTERACTIVE AND PARTICIPATEING. ONE ASSIST WITH ADLS, CARE, TRANSFERING, AND TOILETING DUE TO UNSTEADY GAIT; UTILIZING WHEELCHAIR. MAKES NEEDS KNOWN. PATIENT PULLED UP HER SHIRT AND STATED "LOOK I AM NOT ANYMORE", REDIRECTION EFFECTIVE. MEDICATION COMPLIANT. P- ASSESS MOOD, ORIENTATION, SI/HI, HALLUCINATIONS, DELUSIONS OR PAIN EVERY SHIFT. 1:1 THERAPEUTIC INTERACTION PROVIDED WHEN NECESSARY. PROVIDE MEDICATIONS ON TIME WITH EDUCATION ON EACH. REASSURANCE AND REDIRECTION PROVIDED WHEN NECESSARY. ONE ASSIST WITH ADLS, CARE, TOILETING AND TRANSFERING DUE TO UNSTEADY GAIT. FALLING STAR PROGRAM IN PLACE. Q15 MINUTE CHECKS MAINTAINED FOR SAFETY.
--- NOTE | 2019-03-13 11:34 | NUR ---
AM GROUP PT ATTENDED AND PARTICIPATED IN MORNING GROUP THERAPY. PT EXPRESSED NO HALLUCINATIONS OR DELUSIONS WHILE IN GROUP. PT INTERACTIONS WERE APPROPRIATE.
--- NOTE | 2019-03-13 12:07 | NUR ---
Shift chart check completed.
[2019-03-13 19:09] VITALS: BP 137/75
--- NOTE | 2019-03-13 22:23 | NUR ---
P-CONFUSION I-REDIRECTION WITH 1:1 THERAPEUTIC INTERVENTIONS AND PRESENT REALITY. EDUCATE AND ENCOURAGE MEDICATION COMPLIANCE R-PATIENT WITH SHORT TERM AND SALES SERVICE ASSISTANT MEMORY DEFICITS. PATIENT MEDICATION COMPLIANT. PATIENT ON MACROBID FOR +UTI. PATIENT REFUSED NOURISHMENT AT HS. PATIENT PROVIDED FLUIDS. P-CONTINUE TO ENCOURAGE MEDICATION COMPLIANCE, CONTINUE TO PRESENT REALITY, ENCOURAGE GROUP THERAPY WHILE AWAKE
[2019-03-14 07:44] VITALS: BP 114/64
--- NOTE | 2019-03-14 08:30 | NUR ---
Treatment Plan meeting with Dr. Lockhart, RN, AT, MAINTENANCE MAN-S and Brick Veneer Maker. Plan for discharge today with return to [facility]. Transportation has been arranged with facility to transport with cigar packer and picker time 10:30.
[2019-03-14] MEDS ORDERED: PALIPERIDONE ER6 MG PO (08:39)
[2019-03-14] MEDS ORDERED: DIVALPROEX SOD500 M1 PO (08:39)
[2019-03-14] MEDS ORDERED: TRAZODONE150 MG PO (08:39)
[2019-03-14] MEDS ORDERED: MEMANTINE HCL10 MG PO (08:39)
[2019-03-14] MEDS ORDERED: RIVASTIGMINE TAR3 M1 PO (08:39)
--- NOTE | 2019-03-14 08:42 | NUR ---
NURSE TO NURSE GIVEN TO "MARCO" AT [facility]. DISCHARGE PACKET FAXED TO [phone] PER REQUEST.
--- NOTE | 2019-03-14 08:54 | NUR ---
PT REQUESTED [facility]ALOX THIS AM FOR COMPLAINT OF GAS. PT PLEASANT LAUGHING WITH STAFF. MEDICATION COMPLIANT. PT FED SELF BREAKFAST. DR CASTREJON AND DR. YU ON UNIT TO SEE PT THIS AM.
--- NOTE | 2019-03-14 10:00 | NUR ---
Discharge Paperwork Faxed to [facility] Attn: Krista Day.
--- NOTE | 2019-03-14 10:33 | NUR ---
PT OFF UNIT AT THIS TIME WITH [facility] TRANSPORT. BELONGINGS, WHEEL CHAIR AND DOCUMENTATION SENT WITH PT AT THIS TIME.
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
--- NOTE | 2019-03-14 11:42 | NUR ---
Patient discharged today to [facility] where she is a long-term resident. Follow-up will be with Dr Wm Lockhart, visiting psychiatrist. While at [facility], pt's behaviors improved. Pt remained mildly delusional. However, the delusions did not appear to be upsetting to the patient. Pt also displayed cognitive deficits. At time of discharge, pt was pleasant and cooperative.
== END 2019-03-14 10:29 | DRG 885 ==
LOC: 3N 10:29
PROVIDERS: ADMIT Psychiatry & Neurology Psychiatry
DX: F31.10 Bipolar disorder, current episode manic without psychotic features, unspecified (principal); F23 Brief psychotic disorder; F25.9 Schizoaffective disorder, unspecified; I25.10 Atherosclerotic heart disease of native coronary artery without angina pectoris; I50.9 Heart failure, unspecified; E78.5 Hyperlipidemia, unspecified; M19.90 Unspecified osteoarthritis, unspecified site; K59.00 Constipation, unspecified; Z79.899 Other long term (current) drug therapy